=== PATIENT | male | born 1975 | race Caucasian/White ===

== ENCOUNTER 2018-05-23 12:19 | Emergency (ER) | payer MEDICAID, SELFPAY ==
[2018-05-23 12:31] VITALS: BP 134/97; PULSE 94; RESP 16; TEMP 36.9; O2SAT 97
--- NOTE | 2018-05-23 12:43 | W.ED.GENAD ---
Discharge Plan Disposition Patient Disposition: HOME Condition: Good Discharge Details Chief Complaint: Nk/Back Pain Clinical Impression: Lumbago with sciatica Primary Care Provider: Kya Mcrae ED Provider: Abraham Funk Home Meds and New Rx's Prescriptions: New prednisone 20 mg tablet 40 mg PO DAILY 5 Days Qty: 10 RF: 0 oxycodone-acetaminophen [Percocet] 5-325 mg tablet 1 tab PO Q6H PRN (Reason: severe breakthrough pain) Qty: 7 RF: 0 Discharge Instructions Instructions: Low Back Strain (ED) Additional Instructions: Continue ibuprofen as you have been. May apply ice and/or moist heat to area to increase relief of pain. Please follow-up with physical therapy. Take medications as prescribed. As we discussed the Percocet is used only for severe, breakthrough pain. Return if you develop increasing pain, weakness, numbness or any other acute concerns. Follow-up with regular doctor for recheck in 5-7 days time Stand Alone Forms: Physical Therapy Referral, Work Release Discharge Data Discharge Date/Time-TO BE ENTERED AT DEPARTURE: 05/23/18 13:36 Medical Decision Making 43-year-old male presents with exacerbation of chronic low back pain. Is currently only taking ibuprofen. He arrives with moderate to severe pain, pulse in the 90s, normal blood pressure. His exam reveals normal motor and sensory function of the lower extremity with normal reflexes and great toe proprioception. He has a history of lumbar fusion in the past and is referred for x-ray to rule out disruption of hardware or new acute bony finding. He is able to ambulate, he has no focal deficits. We will prescribe physical therapy, a burst dose of steroids, spell as I did consent the patient for the use of opiates for breakthrough pain. He is given a Rx for 7 pills of Percocet. Consistent with acute exacerbation of chronic back low back pain. Discussed the patient and his return precautions to the ER. I consented the patient for opiate use prior to discharge. HPI General Mode of arrival: ambulatory. Date/Time Provider Initiated Documentation: 05/23/18 12:21. Limitations to Documentation: no limitations. Information obtained by: patient. History of Present Illness 43 year old M presents to the emergency department with the chief complaint of Back pain, described as severe, Quality is described as aching, and is localized to the back. Patient reports radiation to back. Patient started experiencing this day(s) and it has been constant. Immobilization improves symptom(s), Movement worsens symptoms . HPI Narrative: Back pain: 43-year-old with history of chronic back pain presents the emergency room today complaining of day 3 of the gradual onset of constant low back pain that radiates to both legs. He has not had any numbness or tingling. No change to urination. He has had no change to his ability to walk. No focal motor weakness or foot drop. No trauma. Similar to previous exacerbations of back pain in the past Related Data Home Medications Medication Instructions Recorded Confirmed oxycodone-acetaminophen [Percocet] 1 tab PO Q6H PRN #7 tab 05/23/18 prednisone 40 mg PO DAILY 5 Days #10 tab 05/23/18 Previous Rx's Medication Instructions Recorded oxycodone-acetaminophen [Percocet] 1 tab PO Q6H PRN #7 tab 05/23/18 prednisone 40 mg PO DAILY 5 Days #10 tab 05/23/18 Allergies Allergy/AdvReac Type Severity Reaction Status Date / Time bupropion AdvReac Headache, Unverified 12/23/17 11:25 Night Sweats hydrocodone [From Vicodin] AdvReac Nausea Unverified 12/23/17 11:25 [email or web address] AdvReac Headache Unverified 12/23/17 11:25 General Stated Complaint: Nk/Back Pain JULIANA: 4 Review of Systems Review of Systems 6 systems reviewed and otherwise negative [facility] Social History Smoking/Tobacco Use Status: Current every day Surgical History Appendectomy (08/23/88) Cholecystectomy Spinal Fusion (12/21/06) Exam Narrative Exam Narrative: GEN: awake, alert, oriented 3. Pleasant, well groomed, interactive. HEAD: Normocephalic, atraumatic ENT: Mucous membranes moist, oropharynx unremarkable, External ear exam unremarkable EYES: PERRL, EOMI NECK: Full ROM, no PARVEZ, no menigismus BACK: Lumbar vertical surgical incision, well-healed. There is no significant midline tenderness there is bilateral paraspinous muscular tenderness to palpation CHEST/RESP: Nontender, clear to auscultation bilateral, no wheeze/rhonchi/rales CARDIOVASCULAR: RRR, no murmur, rub ramona. 2+ Rad pulse bilateral ABDOMEN: Soft, nontender, no mass. +Bowel sounds EXT: Full ROM, no edema, no rash. Sensation intact throughout including cell distribution. Motor is 5 out of 5. 2+ patella and ankle reflexes are symmetric bilaterally. Great toe proprioception intact Neuro: Grossly normal neurologic exam, conversant, interactive. Psych: Speech fluent, thoughts congruent, affect normal Course Vital Signs Temperature 36.9 C 05/23/18 12:31 Pulse 94 H 05/23/18 12:31 Respiratory Rate 16 05/23/18 12:31 Blood Pressure 134/97 H 05/23/18 12:31 Pulse Oximetry 97 05/23/18 12:31 Temperature 36.9 C 05/23/18 12:31 Temperature Source Temporal Artery Scan 05/23/18 12:31 Pulse 94 H 05/23/18 12:31 Respiratory Rate 16 05/23/18 12:31 Respiratory Effort 05/23/18 12:33 Blood Pressure 134/97 H 05/23/18 12:31 Pulse Oximetry 97 05/23/18 12:31 Oxygen Delivery Method Room Air 05/23/18 12:31 Oxygen Flow Rate 0 05/23/18 12:31 Pain Level 9 05/23/18 12:31
--- NOTE | 2018-05-23 12:46 | DI.RAD_ITS ---
SYMPTOMS/DIAGNOSIS: LOW BACK PAIN, DISTANT FUSION LUMBOSACRAL SPINE: Three views were obtained. There are Gardner rods in place from L4 to S1. There are degenerative changes seen throughout the lumbar spine. No acute fracture identified.
--- NOTE | 2018-05-23 12:46 | ED.GENADUL_ITS ---
Discharge Plan Disposition Patient Disposition: HOME Condition: Good Discharge Details Chief Complaint: Nk/Back Pain Clinical Impression: Lumbago with sciatica Primary Care Provider: Kya Mcrae ED Provider: Abraham Funk Home Meds and New Rx's Prescriptions: New prednisone 20 mg tablet 40 mg PO DAILY 5 Days Qty: 10 RF: 0 oxycodone-acetaminophen [Percocet] 5-325 mg tablet 1 tab PO Q6H PRN (Reason: severe breakthrough pain) Qty: 7 RF: 0 Discharge Instructions Instructions: Low Back Strain (ED) Additional Instructions: Continue ibuprofen as you have been. May apply ice and/or moist heat to area to increase relief of pain. Please follow-up with physical therapy. Take medications as prescribed. As we discussed the Percocet is used only for severe, breakthrough pain. Return if you develop increasing pain, weakness, numbness or any other acute concerns. Follow-up with regular doctor for recheck in 5-7 days time Stand Alone Forms: Physical Therapy Referral, Work Release Discharge Data Discharge Date/Time-TO BE ENTERED AT DEPARTURE: 05/23/18 13:36 Medical Decision Making 43-year-old male presents with exacerbation of chronic low back pain. Is currently only taking ibuprofen. He arrives with moderate to severe pain, pulse in the 90s, normal blood pressure. His exam reveals normal motor and sensory function of the lower extremity with normal reflexes and great toe proprioception. He has a history of lumbar fusion in the past and is referred for x-ray to rule out disruption of hardware or new acute bony finding. He is able to ambulate, he has no focal deficits. We will prescribe physical therapy, a burst dose of steroids, spell as I did consent the patient for the use of opiates for breakthrough pain. He is given a Rx for 7 pills of Percocet. Consistent with acute exacerbation of chronic back low back pain. Discussed the patient and his return precautions to the ER. I consented the patient for opiate use prior to discharge. HPI General Mode of arrival: ambulatory . Date/Time Provider Initiated Documentation: 05/23/18 12:21 . Limitations to Documentation: no limitations . Information obtained by: patient . History of Present Illness 43 year old M presents to the emergency department with the chief complaint of Back pain, described as severe, Quality is described as aching, and is localized to the back. Patient reports radiation to back. Patient started experiencing this day(s) and it has been constant. Immobilization improves symptom(s), Movement worsens symptoms . HPI Narrative: Back pain: 43-year-old with history of chronic back pain presents the emergency room today complaining of day 3 of the gradual onset of constant low back pain that radiates to both legs. He has not had any numbness or tingling. No change to urination. He has had no change to his ability to walk. No focal motor weakness or foot drop. No trauma. Similar to previous exacerbations of back pain in the past Related Data Home Medications Medication Instructions Recorded Confirmed oxycodone-acetaminophen [Percocet] 1 tab PO Q6H PRN #7 tab 05/23/18 prednisone 40 mg PO DAILY 5 Days #10 tab 05/23/18 Previous Rx's Medication Instructions Recorded oxycodone-acetaminophen [Percocet] 1 tab PO Q6H PRN #7 tab 05/23/18 prednisone 40 mg PO DAILY 5 Days #10 tab 05/23/18 Allergies Allergy/AdvReac Type Severity Reaction Status Date / Time bupropion AdvReac Headache, Unverified 12/23/17 11:25 Night Sweats hydrocodone [From Vicodin] AdvReac Nausea Unverified 12/23/17 11:25 [email or web address] AdvReac Headache Unverified 12/23/17 11:25 General Stated Complaint: Nk/Back Pain JULIANA: 4 Review of Systems Review of Systems 6 systems reviewed and otherwise negative [facility] Social History Smoking/Tobacco Use Status: Current every day Surgical History Appendectomy (08/23/88) Cholecystectomy Spinal Fusion (12/21/06) Exam Narrative Exam Narrative: GEN: awake, alert, oriented 3. Pleasant, well groomed, interactive. HEAD: Normocephalic, atraumatic ENT: Mucous membranes moist, oropharynx unremarkable, External ear exam unremarkable EYES: PERRL, EOMI NECK: Full ROM, no PARVEZ, no menigismus BACK: Lumbar vertical surgical incision, well-healed. There is no significant midline tenderness there is bilateral paraspinous muscular tenderness to palpation CHEST/RESP: Nontender, clear to auscultation bilateral, no wheeze/rhonchi/rales CARDIOVASCULAR: RRR, no murmur, rub ramona. 2+ Rad pulse bilateral ABDOMEN: Soft, nontender, no mass. +Bowel sounds EXT: Full ROM, no edema, no rash. Sensation intact throughout including cell distribution. Motor is 5 out of 5. 2+ patella and ankle reflexes are symmetric bilaterally. Great toe proprioception intact Neuro: Grossly normal neurologic exam, conversant, interactive. Psych: Speech fluent, thoughts congruent, affect normal Course Vital Signs Temperature 36.9 C 05/23/18 12:31 Pulse 94 H 05/23/18 12:31 Respiratory Rate 16 05/23/18 12:31 Blood Pressure 134/97 H 05/23/18 12:31 Pulse Oximetry 97 05/23/18 12:31 Temperature 36.9 C 05/23/18 12:31 Temperature Source Temporal Artery Scan 05/23/18 12:31 Pulse 94 H 05/23/18 12:31 Respiratory Rate 16 05/23/18 12:31 Respiratory Effort 05/23/18 12:33 Blood Pressure 134/97 H 05/23/18 12:31 Pulse Oximetry 97 05/23/18 12:31 Oxygen Delivery Method Room Air 05/23/18 12:31 Oxygen Flow Rate 0 05/23/18 12:31 Pain Level 9 05/23/18 12:31
[2018-05-23] MEDS: Ketorolac 60 MG/2 ML VIAL IM (12:48)
== END 2018-05-23 13:36 | disposition home or self-care (01) ==
PROVIDERS: Emergency Provider Emergency Medicine; PCP Nurse Practitioner
DX: M54.41 Lumbago with sciatica, right side (principal); M54.42 Lumbago with sciatica, left side; G89.29 Other chronic pain
CPT/HCPCS: 96372; 99284; 72100; J1885

== ENCOUNTER 2018-06-21 19:40 | Emergency (ER) | payer MEDICAID, SELFPAY ==
[2018-06-21 19:43] VITALS: BP 150/105; PULSE 99; RESP 20; TEMP 36.7; O2SAT 99
--- NOTE | 2018-06-21 20:48 | W.ED.GENAD ---
Discharge Plan Disposition Patient Disposition: HOME Discharge Details Chief Complaint: Nk/Back Pain Clinical Impression: Back pain Primary Care Provider: Eligio Bennett ED Provider: Farrukh Gould Home Meds and New Rx's Prescriptions: Continue trazodone 100 mg tablet 100 mg PO HS Qty: 60 RF: 1 meloxicam 15 mg tablet 15 mg PO DAILY Qty: 30 RF: 1 baclofen 20 mg tablet 20 mg PO QID PRN (Reason: back pain) Qty: 120 RF: 1 Discharge Instructions Instructions: Back Pain (ED) Additional Instructions: PLease have MRI as scheduled tomorrow. Please take your medication as prescribed. Be sure to discuss dosing of mobic in combination with ibuprofen with your primary doctor. Both of these medications are NSAIDs and not typically prescribed together. Please contact your primary care physician to arrange follow-up. Please follow-up with spinal specialist at [facility]. Return to the ER for any worsening or new concerning symptoms. Referrals: Eligio Bennett DO [Primary Care Provider] - Medical Decision Making 43-year-old male with history of spinal fusion presents with exacerbation of chronic low back pain. Patient is having some paresthesias posterior lateral buttocks. Neurologically intact on exam. Able to ambulate with no focal deficits. Patient is currently on Mobic but also taking ibuprofen. I advised him to stop combining these medications and advised him to discuss with his primary care physician. He did not have any NSAID since this morning. I will give him a dose of Toradol IM now as he notes that this has helped him in the past with exacerbations. Patient has MRI scheduled for tomorrow morning. I encouraged him to keep this appointment. He is also scheduled to follow-up with spinal specialist at [facility]. I encouraged him to keep this appointment as well. HPI General Mode of arrival: ambulatory. Date/Time Provider Initiated Documentation: 06/21/18 19:46. Limitations to Documentation: no limitations. Information obtained by: patient. HPI Narrative: 43-year-old male with chronic back pain, status post spinal fusion, here with exacerbation of his low back pain. Pain is currently moderate to severe and worse with certain positions including prolonged supine position. Pain localized to low thoracic/upper lumbar bialteral paraspinal. Patient notes he last took Tylenol at 2 PM and ibuprofen at 8 AM. He also took Mobic this morning as prescribed. He has associated tingling in his lateral buttocks. No associated bowel or bladder dysfunction. No fever. Related Data Home Medications Medication Instructions Recorded Confirmed baclofen 20 mg tablet 20 mg PO QID PRN #120 tab 06/15/18 06/21/18 meloxicam 15 mg tablet 15 mg PO DAILY #30 tab 06/15/18 06/21/18 trazodone 100 mg tablet 100 mg PO HS #60 tab 06/15/18 06/15/18 Previous Rx's Medication Instructions Recorded baclofen 20 mg tablet 20 mg PO QID PRN #120 tab 06/15/18 meloxicam 15 mg tablet 15 mg PO DAILY #30 tab 06/15/18 trazodone 100 mg tablet 100 mg PO HS #60 tab 06/15/18 Allergies Allergy/AdvReac Type Severity Reaction Status Date / Time bupropion AdvReac Headache, Verified 06/21/18 19:47 Night Sweats hydrocodone [From Vicodin] AdvReac Nausea Verified 06/21/18 19:47 [email or web address] AdvReac Headache Verified 06/21/18 19:47 General Stated Complaint: Nk/Back Pain JULIANA: 4 Review of Systems Review of Systems All systems reviewed & are unremarkable except as noted in HPI and below PFSH Social History household members: spouse and children housing: house lives independently: Yes number of children: 3 number of grandchildren: 1 current occupational status: unemployed Smoking/Tobacco Use Status: Current every day Surgical History Appendectomy (08/23/88) Cholecystectomy Spinal Fusion (12/21/06) Exam Const General: cooperative and no acute distress [facility] Head: normocephalic and atraumatic Mouth: moist mucous membranes Eyes Conjunctivae: normal conjunctivae Sclera: normal sclerae EOM: EOM intact bilaterally Neck Neck: trachea midline and supple Resp Auscultation: clear to auscultation bilaterally, no rales, no rhonchi and no wheezes Cardio Jugular venous pressure: no JVD Rate: regular rate and not tachycardic Rhythm: regular rhythm GI Palpation: soft, not firm, no guarding, no masses, not rigid and nontender Back/Spine/Pelvis Back: No erythema Thoracic/Lumbar Spine: paraspinal tenderness (bilateral upper lumbar) Skin General skin exam: no rashes or lesions noted Neuro General: alert, awake, oriented x3 and tone normal Gait: normal gait Motor: strength 5/5 throughout (bilateral LEs) Sensory Exam: no sensory deficits noted (no saddle anesth) Extrem General: no edema Psych Appearance: grossly normal Mental Status: mental status grossly normal Speech and Movement: speech and movement normal Course Vital Signs Temperature 36.7 C 06/21/18 19:43 Pulse 99 H 06/21/18 19:43 Respiratory Rate 20 06/21/18 19:43 Blood Pressure 150/105 H 06/21/18 19:43 Pulse Oximetry 99 06/21/18 19:43 Temperature 36.7 C 06/21/18 19:43 Temperature Source Temporal Artery Scan 06/21/18 19:43 Pulse 99 H 06/21/18 19:43 Respiratory Rate 20 06/21/18 19:43 Respiratory Effort Non-Labored 06/21/18 19:43 Blood Pressure 150/105 H 06/21/18 19:43 Pulse Oximetry 99 06/21/18 19:43 Pain Level 10 06/21/18 19:47
[2018-06-21] MEDS: Acetaminophen 325 MG TAB 650 MG PO (20:55)
[2018-06-21] MEDS: Ketorolac 60 MG/2 ML VIAL IM (20:55)
--- NOTE | 2018-06-21 20:59 | ED.GENADUL_ITS ---
Discharge Plan Disposition Patient Disposition: HOME Discharge Details Chief Complaint: Nk/Back Pain Clinical Impression: Back pain Primary Care Provider: Eligio Bennett ED Provider: Farrukh Gould Home Meds and New Rx's Prescriptions: Continue trazodone 100 mg tablet 100 mg PO HS Qty: 60 RF: 1 meloxicam 15 mg tablet 15 mg PO DAILY Qty: 30 RF: 1 baclofen 20 mg tablet 20 mg PO QID PRN (Reason: back pain) Qty: 120 RF: 1 Discharge Instructions Instructions: Back Pain (ED) Additional Instructions: PLease have MRI as scheduled tomorrow. Please take your medication as prescribed. Be sure to discuss dosing of mobic in combination with ibuprofen with your primary doctor. Both of these medications are NSAIDs and not typically prescribed together. Please contact your primary care physician to arrange follow-up. Please follow- up with spinal specialist at [facility]. Return to the ER for any worsening or new concerning symptoms. Referrals: Eligio Bennett DO [Primary Care Provider] - Medical Decision Making 43-year-old male with history of spinal fusion presents with exacerbation of chronic low back pain. Patient is having some paresthesias posterior lateral buttocks. Neurologically intact on exam. Able to ambulate with no focal deficits. Patient is currently on Mobic but also taking ibuprofen. I advised him to stop combining these medications and advised him to discuss with his primary care physician. He did not have any NSAID since this morning. I will give him a dose of Toradol IM now as he notes that this has helped him in the past with exacerbations. Patient has MRI scheduled for tomorrow morning. I encouraged him to keep this appointment. He is also scheduled to follow-up with spinal specialist at [facility]. I encouraged him to keep this appointment as well. HPI General Mode of arrival: ambulatory . Date/Time Provider Initiated Documentation: 06/21/18 19:46 . Limitations to Documentation: no limitations . Information obtained by: patient . HPI Narrative: 43-year-old male with chronic back pain, status post spinal fusion, here with exacerbation of his low back pain. Pain is currently moderate to severe and worse with certain positions including prolonged supine position. Pain localized to low thoracic/upper lumbar bialteral paraspinal. Patient notes he last took Tylenol at 2 PM and ibuprofen at 8 AM. He also took Mobic this morning as prescribed. He has associated tingling in his lateral buttocks. No associated bowel or bladder dysfunction. No fever. Related Data Home Medications Medication Instructions Recorded Confirmed baclofen 20 mg tablet 20 mg PO QID PRN #120 tab 06/15/18 06/21/18 meloxicam 15 mg tablet 15 mg PO DAILY #30 tab 06/15/18 06/21/18 trazodone 100 mg tablet 100 mg PO HS #60 tab 06/15/18 06/15/18 Previous Rx's Medication Instructions Recorded baclofen 20 mg tablet 20 mg PO QID PRN #120 tab 06/15/18 meloxicam 15 mg tablet 15 mg PO DAILY #30 tab 06/15/18 trazodone 100 mg tablet 100 mg PO HS #60 tab 06/15/18 Allergies Allergy/AdvReac Type Severity Reaction Status Date / Time bupropion AdvReac Headache, Verified 06/21/18 19:47 Night Sweats hydrocodone [From Vicodin] AdvReac Nausea Verified 06/21/18 19:47 [email or web address] AdvReac Headache Verified 06/21/18 19:47 General Stated Complaint: Nk/Back Pain JULIANA: 4 Review of Systems Review of Systems All systems reviewed & are unremarkable except as noted in HPI and below PFSH Social History household members: spouse and children housing: house lives independently: Yes number of children: 3 number of grandchildren: 1 current occupational status: unemployed Smoking/Tobacco Use Status: Current every day Surgical History Appendectomy (08/23/88) Cholecystectomy Spinal Fusion (12/21/06) Exam Const General: cooperative and no acute distress [facility] Head: normocephalic and atraumatic Mouth: moist mucous membranes Eyes Conjunctivae: normal conjunctivae Sclera: normal sclerae EOM: EOM intact bilaterally Neck Neck: trachea midline and supple Resp Auscultation: clear to auscultation bilaterally, no rales, no rhonchi and no wheezes Cardio Jugular venous pressure: no JVD Rate: regular rate and not tachycardic Rhythm: regular rhythm GI Palpation: soft, not firm, no guarding, no masses, not rigid and nontender Back/Spine/Pelvis Back: No erythema Thoracic/Lumbar Spine: paraspinal tenderness (bilateral upper lumbar) Skin General skin exam: no rashes or lesions noted Neuro General: alert, awake, oriented x3 and tone normal Gait: normal gait Motor: strength 5/5 throughout (bilateral LEs) Sensory Exam: no sensory deficits noted (no saddle anesth) Extrem General: no edema Psych Appearance: grossly normal Mental Status: mental status grossly normal Speech and Movement: speech and movement normal Course Vital Signs Temperature 36.7 C 06/21/18 19:43 Pulse 99 H 06/21/18 19:43 Respiratory Rate 20 06/21/18 19:43 Blood Pressure 150/105 H 06/21/18 19:43 Pulse Oximetry 99 06/21/18 19:43 Temperature 36.7 C 06/21/18 19:43 Temperature Source Temporal Artery Scan 06/21/18 19:43 Pulse 99 H 06/21/18 19:43 Respiratory Rate 20 06/21/18 19:43 Respiratory Effort Non-Labored 06/21/18 19:43 Blood Pressure 150/105 H 06/21/18 19:43 Pulse Oximetry 99 06/21/18 19:43 Pain Level 10 06/21/18 19:47
== END 2018-06-21 21:00 | disposition home or self-care (01) ==
PROVIDERS: Emergency Provider Student in an Organized Health Care Education/Training Program; PCP Family Medicine
DX: M54.5 Low back pain (principal)
CPT/HCPCS: 96372; 99284; J1885

== ENCOUNTER 2018-06-22 01:31 | Outpatient (CLI) | payer MEDICAID, SELFPAY ==
[2018-06-22] MEDS: Gadoterate meglumine 20 ML VIAL IVP (10:47)
--- NOTE | 2018-06-22 10:55 | DI.MRI_ITS ---
SYMPTOM/DIAGNOSIS: PAIN LE AND NUMBNESS, FAILED BACK SURGICAL SYNDROME, M96.1, M54.5 LUMBOSACRAL SPINE MRI: Sagittal T 1 and T 2 and T 1 trim sagittal and sagittal fat sat pre and post and axial T 1 pre and post and axial T 1 and axial T 2 and sagittal T 1 fat sat post and axial T 1 fat sat post pulse sequences were performed. The patient is status post L 4-[address] There are moderate degenerative endplate changes at L 2-3 there there is diminished signal and a narrow disc consistent with desiccation. The bony signal is otherwise unremarkable. At L 1-2, there is no evidence of a disc protrusion. There are mild facet joint degenerative changes and no evidence of spinal stenosis. At L 2-3, disc osteophyte prominence is demonstrated. There is no evidence of a disc protrusion. There are moderately severe facet joint degenerative changes and there is mild central canal narrowing. There is no evidence of significant spinal stenosis. At L 3-4, there is severe facet joint DJD. No evidence of a disc herniation and mild bilateral foraminal stenosis. At L 4-5, note is made of pedicle screws and rods in place. There is very mild disc osteophyte prominence however severe facet joint DJD is evident. There is an apparent right sided disc herniation at L 4-5 with compression of the dural sac and nerve root and exiting right L 5 nerve. Severe facet joint degenerative changes are identified. At L 5-S1, note is made of post surgical changes with greg and pedicle screws in place. There is no evidence of a disc herniation at this level. No intrinsic abnormality involving the lower dorsal cord, conus or filum terminale is seen. SUMMARY: Findings consistent with degenerative disc disease and post surgical changes. There may be a small right side dL 4-5 disc protrusion. There is evidence of degenerative disc disease and DJD throughout the lumbar spine with multi level spinal stenosis. Please see the above discussion.
== END 2018-06-22 01:51 ==
PROVIDERS: PCP Family Medicine; Visit Provider Nurse Practitioner
DX: M96.1 Postlaminectomy syndrome, not elsewhere classified (principal); M54.5 Low back pain; M51.17 Intervertebral disc disorders with radiculopathy, lumbosacral region
CPT/HCPCS: 72158

== ENCOUNTER 2019-08-17 07:03 | Emergency (ER) | payer MEDICAID, SELFPAY ==
[2019-08-17 07:06] VITALS: BP 113/88; PULSE 88; RESP 16; TEMP 36.6; O2SAT 98
--- NOTE | 2019-08-17 07:10 | W.ED.GENAD ---
Discharge Plan Disposition Patient Disposition: HOME Condition: Good Discharge Details Chief Complaint: Orthopedic Clinical Impression: Injury of left wrist Primary Care Provider: Kya Mcrae ED Provider: Fili Zhou Home Meds and New Rx's Prescriptions: No Action No Known Home Meds RF: 0 Discharge Instructions Additional Instructions: Ice on and off for the next few days. Ibuprofen every 6-8 hours for pain. Wear splint for the next week or so for comfort. Follow-up with primary care for reevaluation if not significantly better in 1 to 2 weeks. Return to ED for increased pain, swelling, numbness, weakness to the hand. Stand Alone Forms: Work Release Referrals: Kya Mcrae, AEROTRIANGULATION SPECIALIST [Primary Care Provider] - Medical Decision Making Patient with isolated wrist injury status post fall. Ibuprofen ordered and patient sent x-ray. Per my review his x-ray shows no acute changes. He appears to have previous injury to this wrist but compared to prior films there is no significant change and no acute fracture. Will wait for preliminary radiology read. Patient will be placed in a splint for comfort. Ice and ibuprofen for the next few days. Follow-up with primary care in 1 to 2 weeks for recheck. Return to ED for increasing pain, swelling, numbness, weakness. HPI General Mode of arrival: ambulatory. Date/Time Provider Initiated Documentation: 08/17/19 07:06. Limitations to Documentation: no limitations. Information obtained by: patient. HPI Narrative: Patient presents to ED with complaint of left wrist pain. He had a slip and fall outside. Because most of the fall with his left arm. He is left-hand dominant. He has pain in the left wrist mostly ulnar aspect. He has no numbness or weakness of the hand. Denies any other injury. Did not strike his head. Ambulatory here for evaluation of the wrist pain. Related Data Home Medications Medication Instructions Recorded Confirmed Unknown [No Known Home Meds] 08/17/19 08/17/19 Allergies Allergy/AdvReac Type Severity Reaction Status Date / Time bupropion AdvReac Headache, Verified 08/17/19 07:09 Night Sweats hydrocodone [From Vicodin] AdvReac Nausea Verified 08/17/19 07:09 [email or web address] AdvReac Headache Verified 08/17/19 07:09 General Stated Complaint: Orthopedic JULIANA: 4 Review of Systems Constitutional Constitutional: Denies weakness Musculoskeletal Musculoskeletal: Reports arthralgias, Reports limited range of motion, Denies numbness and Denies tingling Integumentary/Breasts Skin/Breast: Denies wounds Neurologic Neurologic: Denies numbness, Denies tingling, Denies paresthesias and Denies weakness [facility] Surgical History Appendectomy (08/23/88) Cholecystectomy Spinal Fusion (12/21/06) twice; most recent posterior fusion L4-S1 Social History Smoking/Tobacco Use Status: Current every day Alcohol Intake: never Drug use: Never Substance use type: does not use Household members: spouse and children Housing: house Number of Children: 3 number of grandchildren: 1 What type of physical activity do you participate in: none Do you feel safe at home: Yes Do you feel safe in your relationship?: Yes Exam Narrative Exam Narrative: Vitals: Afebrile with normal vital signs and room air pulse oximetry. Const: WDWN male in NAD. HEENT: NC/AT. Normal facial exam. Eyes: Normal conjunctiva and sclera. Neck: Supple. Trachea midline. No c-spine tenderness. Lungs: Normal respiratory effort. Lungs are clear. Cor: RRR without murmur/gallop. Good radial pulses. Neuro: A+O x 3. Normal speech, gait, mentation. No focal motor or sensory deficit. Ext: Tenderness lateral aspect of the wrist and distal ulna. Slight swelling. Normal strength and sensation distally in the hand. Normal radial pulse and cap refill. No tenderness elsewhere of the left upper extremity. Skin: Warm and dry without wounds. Course Vital Signs Vital signs: Vital Signs Temperature 97.9 F 08/17/19 07:06 Pulse 88 08/17/19 07:06 Respiratory Rate 16 08/17/19 07:06 Blood Pressure 113/88 08/17/19 07:06 Pulse Oximetry 98 08/17/19 07:06 Temperature 97.9 F 08/17/19 07:06 Temperature Source Temporal Artery Scan 08/17/19 07:06 Pulse 88 08/17/19 07:06 Respiratory Rate 16 08/17/19 07:06 Respiratory Effort Non-Labored 08/17/19 07:06 Blood Pressure 113/88 08/17/19 07:06 Blood Pressure Position Sitting 08/17/19 07:06 Pulse Oximetry 98 08/17/19 07:06 Oxygen Delivery Method Room Air 08/17/19 07:06 Oxygen Flow Rate 0 08/17/19 07:06 Pain Level 8 08/17/19 07:06
--- NOTE | 2019-08-17 07:16 | DI.RAD_ITS ---
EXAM: XR WRIST LT COMPLETE INDICATION: trauma/fall. COMPARISON: LEFT FOREARM from 07/19/2016 LEFT WRIST COMPLETE from 08/18/2017 TECHNIQUE: 2D digital imaging was performed. FINDINGS: No acute fracture or dislocation is identified. There is again seen a deformity of the base of the 3 rd metacarpal. There is an old well corticated osseous density at the tip of the ulnar styloid proce ss. This is unchanged. Soft tissues are unremarkable. IMPRESSION: No acute abnormality.
[2019-08-17] MEDS: Ibuprofen 600 MG TAB PO (07:27)
--- NOTE | 2019-08-17 07:53 | DI.VRAD_ITS ---
PROCEDURE INFORMATION: Exam: XR Left Wrist Exam date and time: 08/17/2019 7:19 AM Age: 44 years old Clinical indication: Other: Trauma/fall; Additional info: Trauma/fall landed on lt wrist pain on ulna side . TECHNIQUE: Imaging protocol: XR Left wrist. Views: 3 or more views. COMPARISON: CR LEFT WRIST COMPLETE 08/18/2017 4:31 PM FINDINGS: Bones/joints: No acute bone injury or malalignment. Well-corticated 5 mm ossific density again demonstrated adjacent to the ulnar styloid. Mild degenerative change. Soft tissues: No radiopaque foreign body. IMPRESSION: No acute bone injury or malalignment. Dictated and Authenticated by: Chad William MD. Ordering:JOSIE Penn MD
== END 2019-08-17 07:57 | disposition home or self-care (01) ==
PROVIDERS: Emergency Provider Emergency Medicine; PCP Nurse Practitioner
DX: S69.82XA Other specified injuries of left wrist, hand and finger(s), initial encounter (principal); W00.0XXA Fall on same level due to ice and snow, initial encounter
CPT/HCPCS: 29125; 99283; 73110; L3908

== ENCOUNTER 2019-08-19 17:11 | Emergency (ER) | payer MEDICAID, SELFPAY ==
[2019-08-19 17:17] VITALS: BP 125/76; PULSE 98; RESP 16; TEMP 36.7; O2SAT 99
--- NOTE | 2019-08-20 22:52 | ED.GENADUL_ITS ---
Discharge Plan Disposition Patient Disposition: HOME Condition: Good Discharge Details Chief Complaint: Orthopedic Clinical Impression: Medication care plan discussed with patient Primary Care Provider: Kya Mcrae ED Provider: Corie Perkins Home Meds and New Rx's Prescriptions: No Action naproxen sodium 500 mg tablet, ER multiphase 24 hr 500 mg PO DAILY Qty: 14 RF: 1 omeprazole 40 mg capsule,delayed release(DR/EC) 40 mg PO DAILY Qty: 14 RF: 1 Discharge Instructions Additional Instructions: Use ibuprofen 600 mg every 8 hours with food in your stomach first as discussed. Use Zantac [id number]. Follow-up with physical therapy and your primary care doctor as discussed. Return for any worsening or concerns sooner if needed Discharge Data Discharge Date/Time-TO BE ENTERED AT DEPARTURE: 08/19/19 17:56 Medical Decision Making After discussion with the patient he is returning to the emergency room for advice regarding his medications previously prescribed. Patient prescribed Naprosyn as well as omeprazole. Pharmacy these medications will cost him approximately $400 given his insurance. I recommended that the patient use [id number] Motrin which he Tyler has at home in addition to Zantac which she can purchase at the pharmacy. Patient is very agreeable to this plan of care. Again patient has no new medical concerns or complaints he was just seeking advice regarding his prescriptions. Please see previous providers HPI and physical exam regarding the details of his left wrist pain. HPI General Date/Time Provider Initiated Documentation: 08/19/19 17:37 . HPI Narrative: This patient was seen in the emergency room earlier today for complaints of wrist pain. Patient reports he has no new medical concerns however he was prescribed Naprosyn and omeprazole which the pharmacy reports will be approximately $400. Patient unwilling to fill those medications and is seeking advice, they advised him to return to the emergency room. Patient again has no new medical concerns or complaints and is very aware of how to appropriately manage his rest complaints as previously directed by the previous provider. Related Data Home Medications Medication Instructions Recorded Confirmed naproxen sodium 500 mg 500 mg PO DAILY #14 tab 08/18/19 08/19/19 tablet,extended release 24 hr mphase omeprazole 40 mg capsule,delayed 40 mg PO DAILY #14 cap 08/18/19 08/19/19 release Previous Rx's Medication Instructions Recorded naproxen sodium 500 mg 500 mg PO DAILY #14 tab 08/18/19 tablet,extended release 24 hr mphase omeprazole 40 mg capsule,delayed 40 mg PO DAILY #14 cap 08/18/19 release Allergies Allergy/AdvReac Type Severity Reaction Status Date / Time bupropion AdvReac Headache, Verified 08/19/19 17:23 Night Sweats hydrocodone [From Vicodin] AdvReac Nausea Verified 08/19/19 17:23 [email or web address] AdvReac Headache Verified 08/19/19 17:23 General Stated Complaint: Orthopedic JULIANA: 4 Review of Systems All systems reviewed & are unremarkable except as noted in HPI and below PFSH Social History Smoking/Tobacco Use Status: Current every day Alcohol Intake: never Drug use: Never Substance use type: does not use Household members: spouse and children Housing: house Number of Children: 3 number of grandchildren: 1 What is your relationship status?: Panel score (0-1 are the most socially isolated patients): 1 What type of physical activity do you participate in: none Do you feel safe at home: Yes Do you feel safe in your relationship?: Yes Exam Narrative Exam Narrative: CONST: Healthy appearing patient, in no acute distress. Well hydrated. Alert and alert. MUSCULOSKELETAL: Normal Gait. Left wrist pain with palpation. Distal neurovascularly intact SKIN: Normal. Dry. No rashes. NEURO: Alert and awake. Speech clear. PSYCH: Normal affect. Cooperative. Course Vital Signs Vital signs: Vital Signs Temperature 36.7 C 08/19/19 17:17 Pulse 98 H 08/19/19 17:17 Respiratory Rate 16 08/19/19 17:17 Blood Pressure 125/76 08/19/19 17:17 Pulse Oximetry 99 08/19/19 17:17 Temperature 36.7 C 08/19/19 17:17 Temperature Source Temporal Artery Scan 08/19/19 17:17 Pulse 98 H 08/19/19 17:17 Respiratory Rate 16 08/19/19 17:17 Respiratory Effort Non-Labored 08/19/19 17:22 Blood Pressure 125/76 08/19/19 17:17 Blood Pressure Position Sitting 08/19/19 17:17 Pulse Oximetry 99 08/19/19 17:17 Oxygen Delivery Method Room Air 08/19/19 17:17 Oxygen Flow Rate 0 08/19/19 17:17 Pain Level 8 08/19/19 17:54
== END 2019-08-19 17:56 | disposition home or self-care (01) ==
PROVIDERS: Emergency Provider Physician Assistant; PCP Nurse Practitioner
DX: M25.532 Pain in left wrist (principal); Z71.89 Other specified counseling
CPT/HCPCS: 99282

== ENCOUNTER 2019-11-01 13:43 | Emergency (ER) | payer MEDICAID, SELFPAY ==
[2019-11-01 13:48] VITALS: BP 124/89; PULSE 105; RESP 18; TEMP 37; O2SAT 96
--- NOTE | 2019-11-01 14:04 | ED.GENADUL_ITS ---
Discharge Plan Disposition Patient Disposition: HOME Condition: Improving Discharge Details Chief Complaint: Cellulitis Clinical Impression: Prepatellar bursitis of left knee Primary Care Provider: Kya Mcrae ED Provider: Abraham Funk Home Meds and New Rx's Prescriptions: Continued naproxen sodium 500 mg tablet, ER multiphase 24 hr 500 mg PO DAILY Qty: 14 RF: 1 omeprazole 40 mg capsule,delayed release(DR/EC) 40 mg PO DAILY Qty: 14 RF: 1 Discharge Instructions Instructions: Knee Bursitis (ED) Additional Instructions: Compression, ice to reduce pain and swelling. Remove Johnathan bandage at nighttime. Take prednisone as prescribed. Return if develop a fever, spreading erythema, or any other acute concerns. Medical Decision Making 44-year-old healthy male states that he developed left prepatellar pain and swelling after kneeling for hours to repair his car. He has not had a fever and no significant overlying erythema. Evaluation of the joint is unremarkable. This does appear to be limited to the prepatellar space. Consistent with prepatellar bursitis. Discussed with patient consideration of needle aspiration/drainage which she declines. Do not feel that there is evidence of significant cellulitis. I will treat him with a course of steroids and Johnathan bandage for compression. Discussed with him anticipated course of resolution. HPI General Mode of arrival: ambulatory . Date/Time Provider Initiated Documentation: 11/01/19 13:54 . Limitations to Documentation: no limitations . Information obtained by: patient . History of Present Illness 44 year old M presents to the emergency department with the chief complaint of Left knee swelling anteriorly, described as moderate, Quality is described as dull, and is localized to the left and lower extremity. Patient reports no radiation. Patient started experiencing this day(s) and it has been constant. No relieving factors improve symptom(s), No exacerbating factors reported . Patient notes denies fever/chills. Patient did receive the following treatments prior to arrival, none Related Data Home Medications Medication Instructions Recorded Confirmed naproxen sodium 500 mg 500 mg PO DAILY #14 tab 08/18/19 11/01/19 tablet,extended release 24 hr mphase omeprazole 40 mg capsule,delayed 40 mg PO DAILY #14 cap 08/18/19 11/01/19 release Previous Rx's Medication Instructions Recorded naproxen sodium 500 mg 500 mg PO DAILY #14 tab 08/18/19 tablet,extended release 24 hr mphase omeprazole 40 mg capsule,delayed 40 mg PO DAILY #14 cap 08/18/19 release Allergies Allergy/AdvReac Type Severity Reaction Status Date / Time bupropion AdvReac Headache, Verified 11/01/19 13:54 Night Sweats hydrocodone [From Vicodin] AdvReac Nausea Verified 11/01/19 13:54 [email or web address] AdvReac Headache Verified 11/01/19 13:54 General Stated Complaint: Cellulitis JULIANA: 3 Review of Systems Narrative: No fever, no joint pain, able to ambulate. Began after kneeling for hours. [facility] Social History Smoking/Tobacco Use Status: Current every day Alcohol Intake: never Drug use: Never Substance use type: does not use Household members: spouse and children Housing: house Number of Children: 3 number of grandchildren: 1 What is your relationship status?: Panel score (0-1 are the most socially isolated patients): 1 What type of physical activity do you participate in: none Do you feel safe at home: Yes Do you feel safe in your relationship?: Yes Exam Narrative Exam Narrative: GEN: awake, alert, oriented 3. Pleasant, well groomed, interactive. HEAD: Normocephalic, atraumatic ENT: Mucous membranes moist, oropharynx unremarkable, External ear exam unremarkable EXT: Full ROM, no pain with movement of the knees. There is no laxity of the left knee joint. Motor is 5 out of 5 in the bilateral lower extremity. Left inferior prepatellar area with swelling and tenderness to palpation, no significant overlying erythema or warmth. Neuro: Grossly normal neurologic exam, conversant, interactive. Psych: Speech fluent, thoughts congruent, affect normal Course Vital Signs Vital signs: Vital Signs Temperature 37 C 11/01/19 13:48 Pulse 105 H 11/01/19 13:48 Respiratory Rate 18 11/01/19 13:48 Blood Pressure 124/89 11/01/19 13:48 Pulse Oximetry 96 11/01/19 13:48 Temperature 37 C 11/01/19 13:48 Temperature Source Skin 11/01/19 13:48 Pulse 105 H 11/01/19 13:48 Respiratory Rate 18 11/01/19 13:48 Respiratory Effort 11/01/19 13:54 Blood Pressure 124/89 11/01/19 13:48 Blood Pressure Position Sitting 11/01/19 13:48 Pulse Oximetry 96 11/01/19 13:48 Oxygen Delivery Method Room Air 11/01/19 13:48 Oxygen Flow Rate 0 11/01/19 13:48 Pain Level 10 11/01/19 13:48 Comment 11/01/19 13:48
== END 2019-11-01 14:45 | disposition home or self-care (01) ==
PROVIDERS: Emergency Provider Emergency Medicine; PCP Nurse Practitioner
DX: M70.42 Prepatellar bursitis, left knee (principal); X50.1XXA Overexertion from prolonged static or awkward postures, initial encounter
CPT/HCPCS: 99283

== ENCOUNTER 2022-02-25 15:07 | Emergency (ER) | payer MEDICAID, SELFPAY ==
[2022-02-25 15:27] VITALS: BP 121/78; PULSE 89; RESP 17; TEMP 36.8; O2SAT 99
--- NOTE | 2022-02-25 16:00 | DI.RAD_ITS ---
Exam(s) XR KNEE LT 3V AP,LAT,HANSEL EXAM: XR KNEE LT 3V AP,LAT,HANSEL CLINICAL HISTORY: pain for 2 weeks. TECHNIQUE: 2D digital imaging was performed. COMPARISON: CR LEFT KNEE 3 VIEW COMPLETE from 06/10/2013 FINDINGS: 3 views No evidence of fracture nor prominent joint effusion. No degenerative changes. No osseous lesions. IMPRESSION: No significant findings. DATA REPOSITORY: RADIATION DOSE DELIVERED:
--- NOTE | 2022-02-25 16:14 | W.ED.GENAD ---
Discharge Plan Disposition Patient Disposition: HOME Condition: Stable Discharge Details Chief Complaint: Orthopedic Clinical Impression: Left knee sprain Primary Care Provider: Kya Mcrae ED Provider: Pérez Fam Home Meds and New Rx's Prescriptions: No Action No Known Home Meds Discharge Instructions Instructions: Knee Sprain (ED) Additional Instructions: If pain continues in a week follow up with your primary care provider If you have severe worsening pain, feel more ill, or have fevers return to the emergency department Medical Decision Making 47 yo male comes in with 2 weeks of left knee pain. He states it started 2 weeks ago after he was helping push a car and twisted the knee. Denies any falls or trauma. HAs had pain with walking since so came here for an evaluation. Denies fevers, chills or pain elsewhere. He has no significant swelling or redness of the knee. He has tenderness to both the medial and lateral knee joint lines. He has no warmth of the knee. He can fully extend and flex the knee, normal distal sensation, normal pulses and no calf tenderness. Suspect knee sprain vs strain less likely meniscus vs ligamentous injury. Fracture unlikely but will obtain xray to evaluate for this. No findings on exam to suggest septic joint. xray negative on my read, discussed with pt and will provide knee brace. Advised to f/u with pcp in a week if pain continues and possible ortho referral at that time. Return precautions given Differential Diagnosis Differential Diagnosis: strain, meniscus injury, ligamentous injury Imaging Data Radiologic Study: Attestation: I personally reviewed and interpreted this imaging study as follows: Imaging: X-Ray My impression: no acute findings HPI General Mode of arrival: ambulatory. Date/Time Provider Initiated Documentation: 02/25/22 15:34. Limitations to Documentation: no limitations. Information obtained by: patient. History of Present Illness 47 year old M presents to the emergency department with the chief complaint of left knee pain, described as moderate, Quality is described as aching, Patient started experiencing this week(s) (1) and it has been constant. Rest improves symptom(s), Movement worsens symptoms . Patient notes no other symptoms.. Patient did receive the following treatments prior to arrival, NSAID Related Data Home Medications Medication Instructions Recorded Confirmed Unknown [No Known Home Meds] 02/25/22 02/25/22 Allergies Allergy/AdvReac Type Severity Reaction Status Date / Time bupropion AdvReac Headache, Verified 02/25/22 15:31 Night Sweats hydrocodone [From Vicodin] AdvReac Nausea Verified 02/25/22 15:31 [email or web address] AdvReac Headache Verified 02/25/22 15:31 General Stated Complaint: Orthopedic JULIANA: 4 Review of Systems All systems reviewed & are unremarkable except as noted in HPI and below Constitutional Constitutional: Denies chills, Denies fever(s) and Denies weakness Cardiovascular Cardiovascular: Denies chest pain and Denies dyspnea Respiratory Respiratory: Denies dyspnea Gastrointestinal Gastrointestinal: Denies abdominal pain and Denies vomiting Musculoskeletal Musculoskeletal: Denies joint swelling Integumentary/Breasts Skin/Breast: Denies rash Neurologic Neurologic: Denies weakness PFSH All Active Problems (Updated 02/25/22 @ 16:40 by Pérez Fam MD) Left knee sprain (Acute) Left shoulder pain (Acute) Radiating from left hand pain post fall. ROM significantly limited (unable to lift for deod this morning). 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 painful, but now rad up into shoulder. Splint brings on numbness of hand/arm. Hx Fx, Hx malformation post Fx. Hx CTrelease. Tobacco dependence syndrome (Acute 10/27/11) down to 3/day 04/2014; 05/2017 3-5/day Skin sensation disturbance (Acute 02/02/12) PARESTHESIAS IN MEDIAN NERVE DISTRIBUTION, S/P CTS SURG, EMG 2009 Overweight (Acute 10/27/11) Other chronic postoperative pain (Acute 08/23/07) OPIATES SINCE AT LEAST 2006 work injury; HAD PAIN CLINIC, INJECTIONS, SURG 2007; morphine d/c 04/2013 due to gi discomfort; FAMA 09/2009. nerve conduc 2010 Lumbago (Acute 08/23/91) 1992 [facility] LS SURG; 01/18/08 [facility] L45, L5S1; pain cllinic 02/2012; opioids since 2006 injury [facility]; LAST X-RAY 07/2011; LAST MRI [facility] 12/09/2007 Knee pain (Acute 01/20/13) LAST X-RAY 07/2011 NEG Gastroesophageal reflux disease without esophagitis (Acute 06/26/08) transition PPI to H2 fco fall 2013 Enthesopathy of hand (Acute 08/03/08) S/P BILAT CTS SURG; S/P NEG EMG 2009, SWELLING, Rheum CONSULT 2008; SHAWN L WRIST Esophageal reflux (Acute 06/26/08) transition PPI to H2 fco fall 2013 Complex regional pain syndrome of both upper extremities (Acute 09/23/09) Consult Rheum, Neuro 2009; shawn L wrist (is left handed) Chronic nonmalignant pain (Acute) OPIATES SINCE AT LEAST 2006 work injury; HAD PAIN CLINIC, INJECTIONS, SURG 2007; morphine d/c 04/2013 due to gi discomfort; FAMA 09/2009. nerve conduc 2009 Adjustment disorder, unspecified (Acute 07/03/16) Insomnia (Chronic) Back pain (Acute) Surgical History Appendectomy (08/23/88) Cholecystectomy Spinal Fusion (12/21/06) twice; most recent posterior fusion L4-S1 Social History Smoking/Tobacco Use Status: Current every day Tobacco Type: cigarettes Smoking risk assessment performed?: Yes Alcohol Intake: never Drug use: Never Substance use type: does not use Household members: spouse and children Housing: house Number of Children: 3 number of grandchildren: 1 What is your relationship status?: Panel score (0-1 are the most socially isolated patients): 1 What type of physical activity do you participate in: none Do you feel safe at home: Yes Do you feel safe in your relationship?: Yes Exam Const General: no acute distress Orientation: alert HENMT Head: normal to inspection Ears: external ears normal General nose exam: external nose normal Mouth: moist mucous membranes Eyes General: appearance normal, both eyes and all related structures Neck Neck: normal visual inspection Resp Effort & Inspection: normal respiratory effort and able to speak in complete sentences Cardio Rate: regular rate Skin General skin exam: no rashes or lesions noted Neuro General: patient alert and patient oriented x3 Extrem General: normal to inspection, full ROM and capillary refill normal Psych Mental Status: mental status grossly normal Course Vital Signs Vital signs: Vital Signs Temperature 36.8 C 02/25/22 15:27 Pulse 89 02/25/22 15:27 Respiratory Rate 17 02/25/22 15:27 Blood Pressure 121/78 02/25/22 15:27 Pulse Oximetry 99 02/25/22 15:27 Temperature 36.8 C 02/25/22 15:27 Temperature Source Temporal Artery Scan 02/25/22 15:27 Pulse 89 02/25/22 15:27 Respiratory Rate 17 02/25/22 15:27 Blood Pressure 121/78 02/25/22 15:27 Blood Pressure Position Sitting 02/25/22 15:27 Pulse Oximetry 99 02/25/22 15:27 Oxygen Delivery Method Room Air 02/25/22 15:27 Oxygen Flow Rate 0 02/25/22 15:27 Pain Level 9 02/25/22 15:27
[2022-02-25] MEDS: Acetaminophen 500 MG TAB 1000 MG PO (16:33)
== END 2022-02-25 16:45 | disposition home or self-care (01) ==
PROVIDERS: Emergency Provider Emergency Medicine; PCP Nurse Practitioner
DX: S83.8X2A Sprain of other specified parts of left knee, initial encounter (principal); X50.0XXA Overexertion from strenuous movement or load, initial encounter
CPT/HCPCS: 29505; 73562; 99283

== ENCOUNTER 2022-04-04 16:08 | Emergency (ER) | payer MEDICAID, SELFPAY ==
--- NOTE | 2022-04-04 16:12 | ED.GENADUL_ITS ---
Discharge Plan Disposition Patient Disposition: HOME Condition: Stable Discharge Details Clinical Impression: Abrasion, corneal Primary Care Provider: Kya Mcrae ED Provider: Santi Rich Home Meds and New Rx's Prescriptions: No Action No Known Home Meds Discharge Instructions Instructions: Corneal Abrasion (ED) Additional Instructions: Avoid pulling her eyes. Ilotycin as directed. [id number] lubricating drops as directed for symptomatic control. Please watch for new or worsening symptoms and return to the ER for any concerns. Otherwise I would like you to contact the [facility] on Wednesday to discuss your ER visit set up an outpatient reevaluation of your corneal abrasion. [facility] Medical Decision Making 47-year-old gentleman who does not require corrective lenses, reports tetanus status up-to-date, concern for getting a rust in his left eye a couple of hours ago while working under his vehicle. Visual acuities obtained, please see RN note. Patient denies blurry or double vision. Examination is consistent with a corneal abrasion patient. I do not see any obvious foreign body. We did discuss the importance of outpatient follow-up given the concern is rust, if there is retained foreign body could result in a rust ring. No evidence of rust ring at this time. First dose of Ilotycin given here. Standard discharge and return precautions were provided. Patient understands, is agreeable to this plan, and has no additional questions or concerns upon discharge. This documentation was generated using [employer] dictation system, please disregard any oddities of phrase or misspellings. Medical Records Medical records reviewed: Yes I reviewed the patient's medical records. HPI General Mode of arrival: ambulatory . Date/Time Provider Initiated Documentation: 04/04/22 16:12 . Limitations to Documentation: no limitations . Information obtained by: patient . History of Present Illness 47 year old M presents to the emergency department with the chief complaint of Left eye irritation, described as mild, with intensity rated at 2. Quality is described as other (Irritation), and is localized to the eyes and left. Patient reports no radiation. Patient started experiencing this hour(s) (2) and it has been constant. other things that improve symptom(s), (Flushes his eye) Other factors that worsen symptoms (Blinking) . Patient notes no other symptoms.. Patient did receive the following treatments prior to arrival, none Related Data Home Medications Medication Instructions Recorded Confirmed Unknown [No Known Home Meds] 02/25/22 02/25/22 Allergies Allergy/AdvReac Type Severity Reaction Status Date / Time bupropion AdvReac Headache, Verified 02/25/22 15:31 Night Sweats hydrocodone [From Vicodin] AdvReac Nausea Verified 02/25/22 15:31 [email or web address] AdvReac Headache Verified 02/25/22 15:31 General JULIANA: 4 Review of Systems Constitutional Constitutional: Denies headache(s) Eyes Eyes: Denies blurry vision, Denies change in vision, Reports irritation and Denies requires corrective lenses ENT Ears, Nose, Mouth, and Throat: Denies headache(s) Neurologic Neurologic: Denies headache(s) PFSH All Active Problems Abrasion, corneal (Acute) Left shoulder pain (Acute) Radiating from left hand pain post fall. ROM significantly limited (unable to lift for deod this morning). 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 painful, but now rad up into shoulder. Splint brings on numbness of hand/arm. Hx Fx, Hx malformation post Fx. Hx CTrelease. Tobacco dependence syndrome (Acute 10/27/11) down to 3/day 04/2014; 05/2017 3-5/day Skin sensation disturbance (Acute 02/02/12) PARESTHESIAS IN MEDIAN NERVE DISTRIBUTION, S/P CTS SURG, EMG 2009 Overweight (Acute 10/27/11) Other chronic postoperative pain (Acute 08/23/07) OPIATES SINCE AT LEAST 2006 work injury; HAD PAIN CLINIC, INJECTIONS, SURG 2007; morphine d/c 04/2013 due to gi discomfort; FAMA 09/2009. nerve conduc 2010 Lumbago (Acute 08/23/91) [place] [facility] SURG; 01/18/[place] [facility] [place], L5S1; pain cllinic 02/2012; opioids since 2006 injury [facility]; LAST X-RAY 07/2011; LAST MRI [facility] [place]2007 Knee pain (Acute 01/20/13) LAST X-RAY 07/2011 NEG Gastroesophageal reflux disease without esophagitis (Acute 06/26/08) transition PPI to H2 fco fall 2013 Enthesopathy of hand (Acute 08/03/08) S/P BILAT CTS SURG; S/P NEG EMG 2009, SWELLING, Rheum CONSULT 2008; SHAWN L WRIST Esophageal reflux (Acute 06/26/08) transition PPI to H2 fco fall 2013 Complex regional pain syndrome of both upper extremities (Acute 09/23/09) Consult Rheum, Neuro 2009; shawn L wrist (is left handed) Chronic nonmalignant pain (Acute) OPIATES SINCE AT LEAST 2006 work injury; HAD PAIN CLINIC, INJECTIONS, SURG 2007; morphine d/c 04/2013 due to gi discomfort; FAMA 09/2009. nerve conduc 2009 Adjustment disorder, unspecified (Acute 07/03/16) Insomnia (Chronic) Back pain (Acute) Surgical History Appendectomy (08/23/88) Cholecystectomy Spinal Fusion (12/21/06) twice; most recent posterior fusion L4-S1 Social History Smoking/Tobacco Use Status: Current every day Tobacco Type: cigarettes Smoking risk assessment performed?: Yes Alcohol Intake: never Drug use: Never Substance use type: does not use Household members: spouse and children Housing: house Number of Children: 3 number of grandchildren: 1 What is your relationship status?: Panel score (0-1 are the most socially isolated patients): 1 What type of physical activity do you participate in: none Do you feel safe at home: Yes Do you feel safe in your relationship?: Yes Exam Const General: cooperative, healthy appearing, comfortable and no acute distress Orientation: alert and awake [facility] Head: normal to inspection, normocephalic and atraumatic Face and sinus: normal facial exam Mouth: moist mucous membranes Eyes General: appearance normal, both eyes and all related structures Alignment and Position: alignment normal Periorbital: periorbital findings normal Eyelids: eyelids normal Conjunctivae: conjunctivae normal Sclera: sclerae normal Cornea: corneas abnormal on the left fluorescein used and abrasion central and fluorescein used Pupils: PERRL EOM: EOM intact bilaterally Direct ophthalmoscopy: normal light reflex Neck Neck: normal visual inspection, full ROM, trachea midline and supple Resp Effort & Inspection: normal respiratory effort and able to speak in complete sen tences Skin General skin exam: no rashes or lesions noted Neuro General: patient alert, patient awake, moves all extremities and no focal motor deficits Sensory Exam: no sensory deficits noted Psych Appearance: grossly normal Mental Status: mental status grossly normal
[2022-04-04 16:17] VITALS: BP 117/82; PULSE 92; RESP 22; TEMP 36.8; O2SAT 97
[2022-04-04] MEDS: Fluorescein STRIPS 100/BOX 1 MG (16:28)
[2022-04-04] MEDS: Tetracaine 0.5% 4 ML BTL (16:28)
== END 2022-04-04 16:57 | disposition home or self-care (01) ==
PROVIDERS: Emergency Provider Physician Assistant; PCP Nurse Practitioner
DX: S05.02XA Injury of conjunctiva and corneal abrasion without foreign body, left eye, initial encounter (principal); X58.XXXA Exposure to other specified factors, initial encounter
CPT/HCPCS: 99283

== ENCOUNTER 2022-05-20 15:32 | Emergency (ER) | payer MEDICAID, SELFPAY ==
[2022-05-20 15:36] VITALS: BP 119/75; PULSE 99; RESP 18; TEMP 36.9; O2SAT 100
--- NOTE | 2022-05-20 15:52 | W.ED.GENAD ---
Discharge Plan Disposition Patient Disposition: HOME Condition: Stable Discharge Details Clinical Impression: Cellulitis and abscess of hand Primary Care Provider: Kya Mcrae ED Provider: Trini Park Home Meds and New Rx's Prescriptions: New doxycycline monohydrate 100 mg capsule 100 mg PO Q12H 10 Days Qty: 20 0RF Discharge Instructions Instructions: Cellulitis (ED) Additional Instructions: Take ibuprofen and Tylenol as needed for pain Use the splint, the more you range her finger the longer it will take to heal Soak in warm water, 5 minutes every several hours Elevate is much as possible Take antibiotic as prescribed, yogurt daily while on antibiotic Should he develop dramatic worsening in your redness, fever, chills, or with any new or worsening complaints he will return immediately for reassessment The antibiotic takes approximately 48 hours to improve symptoms Referrals: Kya Mcrae, COMPOSITE TECHNICIAN [Primary Care Provider] - Discharge Data Discharge Date/Time-TO BE ENTERED AT DEPARTURE: 05/20/22 16:11 Medical Decision Making Patient with cellulitis to left middle finger abrasion noted, flexion extension intact, no evidence of tenosynovitis Placed in a splint and started on doxycycline Recheck in 48 hours recommended Motrin/ Tylenol as needed for pain Medical Records Medical records reviewed: Yes I reviewed the patient's medical records. HPI General Date/Time Provider Initiated Documentation: 05/20/22 15:48. HPI Narrative: This 47-year-old gentleman who is otherwise reportedly healthy presents with right third digit swelling and redness. Denies any fever or chills. Denies any chance of diabetes. Noticed it was red yesterday and reported extension today. Denies any additional complaints at this time. Related Data Home Medications Medication Instructions Recorded Confirmed doxycycline monohydrate 100 mg 100 mg PO Q12H 10 days #20 caps 05/20/22 capsule Previous Rx's Medication Instructions Recorded doxycycline monohydrate 100 mg 100 mg PO Q12H 10 days #20 caps 05/20/22 capsule Allergies Allergy/AdvReac Type Severity Reaction Status Date / Time bupropion AdvReac Headache, Verified 05/20/22 15:41 Night Sweats hydrocodone [From Vicodin] AdvReac Nausea Verified 05/20/22 15:41 [email or web address] AdvReac Headache Verified 05/20/22 15:41 General Stated Complaint: Cellulitis JULIANA: 3 Review of Systems All systems reviewed & are unremarkable except as noted in HPI and below PFSH All Active Problems (Updated 05/20/22 @ 15:58 by BEN Alvarado) Cellulitis and abscess of hand (Acute) Left shoulder pain (Acute) Radiating from left hand pain post fall. ROM significantly limited (unable to lift for deod this morning). 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 painful, but now rad up into shoulder. Splint brings on numbness of hand/arm. Hx Fx, Hx malformation post Fx. Hx CTrelease. Tobacco dependence syndrome (Acute 10/27/11) down to 3/day 04/2014; 05/2017 3-5/day Skin sensation disturbance (Acute 02/02/12) PARESTHESIAS IN MEDIAN NERVE DISTRIBUTION, S/P CTS SURG, EMG 2009 Overweight (Acute 10/27/11) Other chronic postoperative pain (Acute 08/23/07) OPIATES SINCE AT LEAST 2006 work injury; HAD PAIN CLINIC, INJECTIONS, SURG 2007; morphine d/c 04/2013 due to gi discomfort; FAMA 09/2009. nerve conduc 2010 Lumbago (Acute 08/23/91) 1992 [facility] [place] SURG[place] [facility] [place] L5S1; pain cllinic 02/2012; opioids since 2006 injury [facility]; LAST X-RAY 07/2011; [place] [facility] [place] Knee pain (Acute 01/20/13) LAST X-RAY 07/2011 NEG Gastroesophageal reflux disease without esophagitis (Acute 06/26/08) transition PPI to H2 fco fall 2013 Enthesopathy of hand (Acute 08/03/08) S/P BILAT CTS SURG; S/P NEG EMG 2009, SWELLING, Rheum CONSULT 2008; SHAWN L WRIST Esophageal reflux (Acute 06/26/08) transition PPI to H2 fco fall 2013 Complex regional pain syndrome of both upper extremities (Acute 09/23/09) Consult Rheum, Neuro 2009; shawn L wrist (is left handed) Chronic nonmalignant pain (Acute) OPIATES SINCE AT LEAST 2006 work injury; HAD PAIN CLINIC, INJECTIONS, SURG 2007; morphine d/c 04/2013 due to gi discomfort; FAMA 09/2009. nerve conduc 2009 Adjustment disorder, unspecified (Acute 07/03/16) Insomnia (Chronic) Back pain (Acute) Surgical History Appendectomy (08/23/88) Cholecystectomy Spinal Fusion (12/21/06) twice; most recent posterior fusion L4-S1 Social History Smoking/Tobacco Use Status: Current every day Tobacco Type: cigarettes Smoking risk assessment performed?: Yes Alcohol Intake: never Drug use: Never Substance use type: does not use Household members: spouse and children Housing: house Number of Children: 3 number of grandchildren: 1 What is your relationship status?: Panel score (0-1 are the most socially isolated patients): 1 What type of physical activity do you participate in: none Do you feel safe at home: Yes Do you feel safe in your relationship?: Yes Exam Const General: cooperative, comfortable and no acute distress Orientation: alert and oriented x3 Extrem Hand/finger images: 1. 2. erythema noted abrasion flexion and extension intact distal cap refill intact Course Vital Signs Vital signs: Vital Signs Temperature 36.9 C 05/20/22 15:36 Pulse 99 H 05/20/22 15:36 Respiratory Rate 18 05/20/22 15:36 Blood Pressure 119/75 05/20/22 15:36 Pulse Oximetry 100 05/20/22 15:36 Temperature 36.9 C 05/20/22 15:36 Temperature Source Oral 05/20/22 15:36 Pulse 99 H 05/20/22 15:36 Respiratory Rate 18 05/20/22 15:36 Respiratory Effort Non-Labored 05/20/22 15:39 Blood Pressure 119/75 05/20/22 15:36 Blood Pressure Position Sitting 05/20/22 15:36 Pulse Oximetry 100 05/20/22 15:36 Oxygen Delivery Method Room Air 05/20/22 15:36 Oxygen Flow Rate 0 05/20/22 15:36 Pain Level 8 05/20/22 15:36
== END 2022-05-20 16:11 | disposition home or self-care (01) ==
PROVIDERS: Emergency Provider Physician Assistant; PCP Nurse Practitioner
DX: L03.012 Cellulitis of left finger (principal); L02.512 Cutaneous abscess of left hand; F17.210 Nicotine dependence, cigarettes, uncomplicated
CPT/HCPCS: 29130; 99283

== ENCOUNTER 2024-04-05 16:04 | Emergency (ER) | payer MEDICAID, SELFPAY ==
[2024-04-05 16:25] VITALS: BP 129/86; PULSE 110; RESP 14; TEMP 36.2; O2SAT 98
--- NOTE | 2024-04-05 17:00 | DI.RAD_ITS ---
Exam(s) XR KNEE LT 3V AP,LAT,HANSEL EXAM: XR KNEE LT 3V AP,LAT,HANSEL CLINICAL HISTORY: left knee pain. TECHNIQUE: 2D digital imaging was performed. COMPARISON: No exams were available for comparison FINDINGS: 3 views No evidence of acute fracture nor prominent joint effusion. Bone density normal. No osseous lesions . No osteochondral defects. No osteophytes. There is minimal narrowing of the medial compartment. Lateral patellofemoral compartments appear unremarkable. IMPRESSION: No acute osseous findings in the knee. Very mild narrowing of the medial compartment noted. DATA REPOSITORY: RADIATION DOSE DELIVERED:
[2024-04-05] MEDS: oxyCODONE 5 MG TAB PO (17:22)
[2024-04-05 17:49] VITALS: BP 132/91; PULSE 99; RESP 16; O2SAT 97
[2024-04-05 18:59] VITALS: BP 140/92; PULSE 104; TEMP 36.2; O2SAT 98
--- NOTE | 2024-04-05 19:51 | ED.GENADUL_ITS ---
Discharge Plan Disposition Patient Disposition: Home Condition: Stable Discharge Details Clinical Impression: Injury of knee, left Primary Care Provider: Kya Mcrae ED Provider: Trini Park Home Meds and New Rx's Prescriptions: New diclofenac sodium [Aleve (diclofenac)] 1 % gel 4.5 inch topical QID Qty: 100 0RF Rx Instructions: apply to single elbow, wrist or hand; for hand includes palm/fingers/back of hand Continued naproxen sodium [Aleve] 220 mg tablet 440 mg PO DAILY Discharge Instructions Instructions: Knee Pain ED Additional Instructions: Apply diclofenac as prescribed for pain Please follow-up with orthopedics with persistent pain greater than 1 week You may take Tylenol 650 every 6 hours as needed for discomfort and ibuprofen 600 mg every 8 hours for breakthrough pain Wear your hinged knee brace for comfort and return earlier should you have new or worsening complaints Stand Alone Forms: Work Release Referrals: Jakob Montelongo MD [ [facility] STAFF PHYSICIAN] - HPI General Date/Time Provider Initiated Documentation: 04/05/24 17:04 . HPI Narrative: This 49-year-old male presents with injury to left knee. Was walking on the steps and felt a cracking sensation. Has had pain since that time. Event occurred today. Denies feeling like the joint is unstable. Denies prior injuries in the past. Related Data Home Medications ?Medication ?Instructions ?Recorded ?Confirmed naproxen sodium 220 mg tablet 440 mg PO DAILY 09/24/22 04/05/24 (Aleve) diclofenac sodium 1 % topical gel 4.5 inch topical QID #100 grams 04/05/24 (Aleve (diclofenac)) Previous Rx's ?Medication ?Instructions ?Recorded diclofenac sodium 1 % topical gel 4.5 inch topical QID #100 grams 04/05/24 (Aleve (diclofenac)) Allergies Allergy/AdvReac Type Severity Reaction Status Date / Time ketorolac (From Toradol) AdvReac Intermediate Headache Verified 04/05/24 16:30 bupropion AdvReac Headache, Verified 04/05/24 16:30 Night Sweats hydrocodone (From Vicodin) AdvReac Nausea Verified 04/05/24 16:30 [email or web address] AdvReac Headache Verified 04/05/24 16:30 General Stated Complaint: Orthopedic JULIANA: 4 Exam Narrative Exam Narrative: Left knee with tenderness predominantly overlying the medial aspect, no palpable effusion or redness. No joint laxity. Flexion and extension intact. Course Vital Signs Vital signs: Vital Signs Temperature 36.2 C L 04/05/24 16:25 Pulse 110 H 04/05/24 16:25 Respiratory Rate 14 04/05/24 16:25 Blood Pressure 129/86 04/05/24 16:25 Pulse Oximetry 98 04/05/24 16:25 Temperature 36.2 C L 04/05/24 18:59 Temperature Source Tympanic 04/05/24 18:59 Pulse 104 H 04/05/24 18:59 Respiratory Rate 16 04/05/24 17:49 Respiratory Effort Normal, Non-Labored 04/05/24 17:49 Respiratory Depth Normal 04/05/24 17:49 Respiratory Pattern Normal 04/05/24 17:49 Blood Pressure 140/92 H 04/05/24 18:59 Blood Pressure Mean 104 04/05/24 17:49 Pulse Oximetry 98 04/05/24 18:59 Oxygen Delivery Method Room Air 04/05/24 18:59 Oxygen Flow Rate 0 04/05/24 18:59 Pain Level 9 04/05/24 18:59 Medical Decision Making 49-year-old male presents with left knee injury. X-ray was ordered which does not show evidence of acute abnormality per my review pending radiology interpretation. Placed in a hinged knee brace and given diclofenac gel. Recheck in 1 week recommended, work note supplied Clinically low suspicion for DVT and neurovascularly intact. Discharged home in stable condition with stable vitals Quality:SDOH Health Related Social Needs: No Data to Display PFSH All Active Problems (Updated 04/05/24 @ 18:36 by BEN Alvarado) Injury of knee, left (Acute) Left shoulder pain (Acute) Radiating from left hand pain post fall. ROM significantly limited (unable to lift for deod this morning). 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 painful, but now rad up into shoulder. Splint brings on numbness of hand/arm. Hx Fx, Hx malformation post Fx. Hx CTrelease. Tobacco dependence syndrome (Acute 10/27/11) down to 3/day 04/2014; 05/2017 3-5/day Skin sensation disturbance (Acute 02/02/12) PARESTHESIAS IN MEDIAN NERVE DISTRIBUTION, S/P CTS SURG, EMG 2009 Overweight (Acute 10/27/11) Other chronic postoperative pain (Acute 08/23/07) OPIATES SINCE AT LEAST 2006 work injury; HAD PAIN CLINIC, INJECTIONS, SURG 2007; morphine d/c 04/2013 due to gi discomfort; FAMA 09/2009. nerve conduc 2009 Lumbago (Acute 08/23/91) 1992 [facility] LS SURG; 01/18/08 [facility] [place] L45, L5S1; pain cllinic 02/2012; opioids since 2006 injury [facility]; LAST X-RAY 07/2011; LAST MRI [facility] [place]/09/2007 Knee pain (Acute 01/20/13) LAST X-RAY 07/2011 NEG Gastroesophageal reflux disease without esophagitis (Acute 06/26/08) transition PPI to H2 fco fall 2013 Enthesopathy of hand (Acute 08/03/08) S/P BILAT CTS SURG; S/P NEG EMG 2009, SWELLING, Rheum CONSULT 2008; SHAWN L WRIST Esophageal reflux (Acute 06/26/08) transition PPI to H2 fco fall 2013 Complex regional pain syndrome of both upper extremities (Acute 09/23/09) Consult Rheum, Neuro 2009; shawn L wrist (is left handed) Chronic nonmalignant pain (Acute) OPIATES SINCE AT LEAST 2006 work injury; HAD PAIN CLINIC, INJECTIONS, SURG 2007; morphine d/c 04/2013 due to gi discomfort; FAMA 09/2009. nerve conduc 2009 Adjustment disorder, unspecified (Acute 07/03/16) Insomnia (Chronic) Back pain (Acute) Surgical History Spinal Fusion (12/21/06) twice; most recent posterior fusion L4-S1 Cholecystectomy Appendectomy (08/23/88) Social History Smoking/Tobacco Use Status: Current every day Tobacco Type: cigarettes Smoking risk assessment performed?: Yes Alcohol Intake: never Drug use: Never Substance use type: does not use Household members: spouse and children Housing: house Number of Children: 3 number of grandchildren: 1 What is your relationship status?: Panel score (0-1 are the most socially isolated patients): 1 What type of physical activity do you participate in: none Do you feel safe at home: Yes Do you feel safe in your relationship?: Yes
== END 2024-04-05 18:31 | disposition home or self-care (01) ==
PROVIDERS: Emergency Provider Physician Assistant; PCP Nurse Practitioner
DX: M25.562 Pain in left knee (principal); X50.0XXA Overexertion from strenuous movement or load, initial encounter
CPT/HCPCS: 29505; 73562; 99283

== ENCOUNTER 2024-07-19 09:04 | Emergency (ER) | payer MEDICAID, SELFPAY ==
[2024-07-19 09:07] VITALS: BP 154/106; PULSE 91; RESP 12; TEMP 36.4; O2SAT 97
--- NOTE | 2024-07-19 09:12 | W.ED.GENAD ---
Discharge Plan Disposition Patient Disposition: Home Condition: Good Discharge Details Clinical Impression: Conjunctivitis Primary Care Provider: Kya Mcrae ED Provider: Sendy Turcios Home Meds and New Rx's Prescriptions: New polymyxin B sulf-trimethoprim 10,000 unit- 1 mg/mL drops 1 drp ophthalmic (eye) Q4H WHILE AWAKE Qty: 10 0RF Rx Instructions: while awake; do not exceed 4 doses in 24 hours Continued naproxen sodium [Aleve] 220 mg tablet 440 mg PO DAILY diclofenac sodium [Aleve (diclofenac)] 1 % gel 4.5 inch topical QID Qty: 100 0RF Rx Instructions: apply to single elbow, wrist or hand; for hand includes palm/fingers/back of hand Discharge Instructions Instructions: Conjunctivitis ([facility]) ED Additional Instructions: Your reddened eye is possibly due to a bacterial infection, though allergic conjunctivitis is also likely based on your exposure to pet dander and dust in the home. Please use the eyedrops in your right eye as prescribed, 1 drop every 4 hours while awake (4 times a day). You may also use cool compresses if you develop any itching or discomfort. For allergy symptoms I recommend using [id number] cetirizine; generic is available. You may go to work with mild pinkeye symptoms, but practice excellent hand hygiene and do not touch your eyes or face while at work. If you do, wash your hands immediately. Wear gloves during your shift. Return to emergency care immediately if develop new eye pain, headaches associated with pink eye, vision changes, protrusion of the eye, or if you are very worried and need to be rechecked again immediately. Stand Alone Forms: Work Release HPI General Date/Time Provider Initiated Documentation: 07/19/24 09:08. HPI Narrative: Thomas is a 49year old male who presents to the emergency department today for evaluation of redness to his right eye. He woke up this morning feeling fine, went to work and noticed that his eye was red with a small amount of greenish discharge at the corner. He denies any associated symptoms with this, says he is otherwise feeling well other than congestion which has been ongoing for a while. He reports that this is his first winter in a new home, has many animals at home and thinks that his eye redness may be due to allergic conjunctivitis, which he has experienced previously with similar exposures. He denies associated fever/chills, eye pain, headache, vision changes, photophobia, itching, foreign body sensation. Past medical history is significant for eye surgery to open up tear ducts as a baby. Does not wear contacts. No ocular issues as an adult. Denies other significant past medical history. No known contacts with marciae at work or home. Physical exam reassuring, conjunctival injection noted to the right eye. PERRL, EOMs intact with painless range of motion. No drainage at this time. No foreign body visualized. No eyelid abnormality noted or periorbital swelling. No submandibular mandibular lymphadenopathy. Easy work of breathing. Visual acuity performed by JESSICA Sims; 20/20 bilaterally D/dx includes but is not limited to: Allergic conjunctivitis, bacterial conjunctivitis, viral conjunctivitis, episcleritis. No red flags concerning for serious etiology of eye pain such as acute closure glaucoma, infectious keratitis, neuritis based on reassuring physical exam and history. As patient had greenish discharge, will treat for bacterial conjunctivitis. Also recommend addressing allergic symptoms with [id number] Claritin. Reviewed discharge instructions with patient, including symptomatic management and red flags indicating need for return to emergency care Related Data Home Medications ?Medication ?Instructions ?Recorded ?Confirmed naproxen sodium 220 mg tablet 440 mg PO DAILY 09/24/22 07/19/24 (Aleve) diclofenac sodium 1 % topical gel 4.5 inch topical QID #100 grams 04/05/24 07/19/24 (Aleve (diclofenac)) polymyxin B sulfate 10,000 1 drp ophthalmic (eye) Q4H WHILE 07/19/24 unit-trimethoprim 1 mg/mL eye drops AWAKE #10 mL Previous Rx's ?Medication ?Instructions ?Recorded diclofenac sodium 1 % topical gel 4.5 inch topical QID #100 grams 04/05/24 (Aleve (diclofenac)) polymyxin B sulfate 10,000 1 drp ophthalmic (eye) Q4H WHILE 07/19/24 unit-trimethoprim 1 mg/mL eye drops AWAKE #10 mL Allergies Allergy/AdvReac Type Severity Reaction Status Date / Time ketorolac (From Toradol) AdvReac Intermediate Headache Verified 07/19/24 09:14 bupropion AdvReac Headache, Verified 07/19/24 09:14 Night Sweats hydrocodone (From Vicodin) AdvReac Nausea Verified 07/19/24 09:14 [email or web address] AdvReac Headache Verified 07/19/24 09:14 General Stated Complaint: EyeProblem JULIANA: 4 Review of Systems Narrative: see HPI Exam Const General: cooperative, healthy appearing, comfortable and no acute distress Nutritional Appearance: average body habitus [facility] Head: normal to inspection Ears: hearing grossly normal bilaterally General nose exam: external nose normal Face and sinus: normal facial exam Eyes Periorbital: periorbital findings normal Eyelids: eyelids normal Conjunctivae: conjunctival abnormality right conjunctival injection; without subconjunctival hemmorhages Pupils: PERRL EOM: EOM intact bilaterally Neck Neck: normal visual inspection and no lymphadenopathy Neuro General: patient alert, patient oriented x3 and tone normal Cranial Nerves: PERRL, EOM intact bilaterally and facial strength normal Cognition: normal cognition Speech: speech normal Course Vital Signs Vital signs: Vital Signs Temperature 36.4 C L 07/19/24 09:07 Pulse 91 H 07/19/24 09:07 Respiratory Rate 12 07/19/24 09:07 Blood Pressure 154/106 H 07/19/24 09:07 Pulse Oximetry 97 07/19/24 09:07 Temperature 36.4 C L 07/19/24 09:07 Temperature Source Oral 07/19/24 09:07 Pulse 91 H 07/19/24 09:07 Respiratory Rate 12 07/19/24 09:07 Respiratory Effort Normal, Non-Labored 07/19/24 09:10 Blood Pressure 154/106 H 07/19/24 09:07 Blood Pressure Position Sitting 07/19/24 09:07 Pulse Oximetry 97 07/19/24 09:07 Oxygen Delivery Method Room Air 07/19/24 09:07 Oxygen Flow Rate 0 07/19/24 09:07 Pain Level 0 07/19/24 09:07 Medical Decision Making Quality:SDOH Health Related Social Needs: No Data to Display PFSH All Active Problems (Updated 07/19/24 @ 09:24 by Sendy Power) Conjunctivitis (Acute) Left shoulder pain (Acute) Radiating from left hand pain post fall. ROM significantly limited (unable to lift for deod this morning). 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 painful, but now rad up into shoulder. Splint brings on numbness of hand/arm. Hx Fx, Hx malformation post Fx. Hx CTrelease. Tobacco dependence syndrome (Acute 10/27/11) down to 3/day 04/2014; 05/2017 3-5/day Skin sensation disturbance (Acute 02/02/12) PARESTHESIAS IN MEDIAN NERVE DISTRIBUTION, S/P CTS SURG, EMG 2009 Overweight (Acute 10/27/11) Other chronic postoperative pain (Acute 08/23/07) OPIATES SINCE AT LEAST 2006 work injury; HAD PAIN CLINIC, INJECTIONS, SURG 2007; morphine d/c 04/2013 due to gi discomfort; FAMA 09/2009. nerve conduc 2010 Lumbago (Acute 08/23/91) 1992 MIR LS SURG; [place] [facility] [place], L5S1; pain cllinic 02/2012; opioids since 2006 injury [facility]; LAST X-RAY 07/2011; [place] [facility] [place] Knee pain (Acute 01/20/13) LAST X-RAY 07/2011 NEG Gastroesophageal reflux disease without esophagitis (Acute 06/26/08) transition PPI to H2 fco fall 2013 Enthesopathy of hand (Acute 08/03/08) S/P BILAT CTS SURG; S/P NEG EMG 2009, SWELLING, Rheum CONSULT 2008; SHAWN L WRIST Esophageal reflux (Acute 06/26/08) transition PPI to H2 fco fall 2013 Complex regional pain syndrome of both upper extremities (Acute 09/23/09) Consult Rheum, Neuro 2009; shawn L wrist (is left handed) Chronic nonmalignant pain (Acute) OPIATES SINCE AT LEAST 2006 work injury; HAD PAIN CLINIC, INJECTIONS, SURG 2007; morphine d/c 04/2013 due to gi discomfort; FAMA 09/2009. nerve conduc 2010 Adjustment disorder, unspecified (Acute 07/03/16) Insomnia (Chronic) Back pain (Acute) Surgical History Spinal Fusion (12/21/06) twice; most recent posterior fusion L4-S1 Cholecystectomy Appendectomy (08/23/88) Social History Smoking/Tobacco Use Status: Current every day Tobacco Type: cigarettes Smoking risk assessment performed?: Yes Alcohol Intake: never Drug use: Never Substance use type: does not use Household members: spouse and children Housing: house Number of Children: 3 number of grandchildren: 1 What is your relationship status?: Panel score (0-1 are the most socially isolated patients): 1 What type of physical activity do you participate in: none Do you feel safe at home: Yes Do you feel safe in your relationship?: Yes
== END 2024-07-19 09:43 | disposition home or self-care (01) ==
LOC: ER 09:40
PROVIDERS: Emergency Provider Nurse Practitioner Family; PCP Nurse Practitioner
DX: H10.31 Unspecified acute conjunctivitis, right eye (principal)
CPT/HCPCS: 99282; 99283

== ENCOUNTER 2025-01-01 15:05 | Emergency (ER) | payer SELFPAY ==
[2025-01-01 15:07] VITALS: BP 142/85; PULSE 106; RESP 16; TEMP 36.3; O2SAT 98
--- NOTE | 2025-01-01 15:24 | W.ED.GENAD ---
Discharge Plan Disposition Patient Disposition: Home Condition: Stable Discharge Details Clinical Impression: Low back strain Primary Care Provider: Kya Mcrae ED Provider: Pérez Fam Home Meds and New Rx's Prescriptions: New cyclobenzaprine 10 mg tablet 10 mg PO TID PRNQty: 20 0RF Discharge Instructions Additional Instructions: Your x-ray did not show any acute findings. You can take 1000 mg of acetaminophen and 600 mg of ibuprofen every 6 hours as needed. If not improving within 1 to 2 weeks follow-up with your primary care provider. If you feel significantly more ill or have any symptoms such as high fevers return to the emergency room for reevaluation. HPI General Mode of arrival: ambulatory. Date/Time Provider Initiated Documentation: 01/01/25 15:09. Limitations to Documentation: no limitations. Information obtained by: patient. History of Present Illness 49 year old M presents to the emergency department with the chief complaint of right lower back pain, described as moderate, Quality is described as aching, and is localized to the back and right. Patient reports no radiation. Patient started experiencing this hour(s) (2) and it has been constant. No relieving factors improve symptom(s), No exacerbating factors reported . Patient notes no other symptoms.. Patient did receive the following treatments prior to arrival, none Related Data Home Medications ?Medication ?Instructions ?Recorded ?Confirmed cyclobenzaprine 10 mg tablet 10 mg PO TID PRN #20 tabs 01/01/25 Previous Rx's ?Medication ?Instructions ?Recorded cyclobenzaprine 10 mg tablet 10 mg PO TID PRN #20 tabs 01/01/25 Allergies Allergy/AdvReac Type Severity Reaction Status Date / Time ketorolac (From Toradol) AdvReac Intermediate Headache Verified 01/01/25 15:09 bupropion AdvReac Headache, Verified 01/01/25 15:09 Night Sweats hydrocodone (From Vicodin) AdvReac Nausea Verified 01/01/25 15:09 [email or web address] AdvReac Headache Verified 01/01/25 15:09 General Stated Complaint: Nk/Back Pain JULIANA: 4 Review of Systems All systems reviewed & are unremarkable except as noted in HPI and below Constitutional Constitutional: Denies chills, Denies fever(s) and Denies weakness Cardiovascular Cardiovascular: Denies chest pain and Denies dyspnea Respiratory Respiratory: Denies cough and Denies dyspnea Gastrointestinal Gastrointestinal: Denies abdominal pain, Denies nausea and Denies vomiting Musculoskeletal Musculoskeletal: Reports back pain and Denies joint swelling Neurologic Neurologic: Denies weakness Psychiatric Psychiatric: Denies depression Exam Const General: no acute distress Orientation: alert HENTN Head: normal to inspection Ears: external ears normal General nose exam: external nose normal Mouth: moist mucous membranes Eyes General: appearance normal, both eyes and all related structures Neck Neck: normal visual inspection Resp Effort & Inspection: normal respiratory effort and able to speak in complete sentences Cardio Rate: regular rate GI Palpation: soft and nontender Back/Spine/Pelvis Back: no CVA tenderness, No erythema and No warmth Skin General skin exam: no rashes or lesions noted Neuro General: patient alert and patient oriented x3 Extrem General: normal to inspection Psych Mental Status: mental status grossly normal Course Vital Signs Vital signs: Vital Signs Temperature 36.3 C L 01/01/25 15:07 Pulse 106 H 01/01/25 15:07 Respiratory Rate 16 01/01/25 15:07 Blood Pressure 142/85 H 01/01/25 15:07 Pulse Oximetry 98 01/01/25 15:07 Temperature 36.3 C L 01/01/25 15:07 Pulse 106 H 01/01/25 15:07 Respiratory Rate 16 01/01/25 15:07 Blood Pressure 142/85 H 01/01/25 15:07 Pulse Oximetry 98 01/01/25 15:07 Pain Level 10 01/01/25 15:07 Medical Decision Making 49-year-old male associated back surgeries over 17 years ago and was feeling well and was at work bending down and he stood up and had acute onset right lower back pain. Denies any vomiting, fevers, urinary symptoms, IV drug use. He localizes the pain to the right lower lumbar region without visible or palpable deformities. He has no saddle anesthesia, intact distal sensation and pulses in his legs. I suspect disc herniation versus muscle spasm versus back strain, will treat his symptoms with ibuprofen and Valium for muscle relaxation and obtain x-rays of the lumbar spine though suspicion for fracture is low. No findings on exam or history to suggest cauda equina or spinal epidural abscess. Patient stable, x-ray shows no acute findings. Still has no saddle anesthesia or concerning findings on exam. Suspect back strain versus disc herniation, he is stable for discharge and will follow-up with his PCP if needed return precautions given. Differential Diagnosis Differential Diagnosis: Muscle spasm, fracture, disc herniation Quality:SDOH Health Related Social Needs: No Data to Display PFSH All Active Problems (Updated 01/01/25 @ 16:41 by Pérez Fam MD) Low back strain (Acute) Left shoulder pain (Acute) Radiating from left hand pain post fall. ROM significantly limited (unable to lift for deod this morning). 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 painful, but now rad up into shoulder. Splint brings on numbness of hand/arm. Hx Fx, Hx malformation post Fx. Hx CTrelease. Tobacco dependence syndrome (Acute 10/27/11) down to 3/day 04/2014; 05/2017 3-5/day Skin sensation disturbance (Acute 02/02/12) PARESTHESIAS IN MEDIAN NERVE DISTRIBUTION, S/P CTS SURG, EMG 2009 Overweight (Acute 10/27/11) Other chronic postoperative pain (Acute 08/23/07) OPIATES SINCE AT LEAST 2006 work injury; HAD PAIN CLINIC, INJECTIONS, SURG 2007; morphine d/c 04/2013 due to gi discomfort; FAMA 09/2009. nerve conduc 2010 Lumbago (Acute 08/23/91) 1992 [facility] [place] [facility] [place] L[place]S1; pain cllinic 02/2012; opioids since 2006 injury [facility]; LAST X-RAY 07/2011; [place] [facility] [place] Knee pain (Acute 01/20/13) LAST X-RAY 07/2011 NEG Gastroesophageal reflux disease without esophagitis (Acute 06/26/08) transition PPI to H2 fco fall 2013 Enthesopathy of hand (Acute 08/03/08) S/P BILAT CTS SURG; S/P NEG EMG 2009, SWELLING, Rheum CONSULT 2008; SHAWN L WRIST Esophageal reflux (Acute 06/26/08) transition PPI to H2 fco fall 2013 Complex regional pain syndrome of both upper extremities (Acute 09/23/09) Consult Rheum, Neuro 2009; shawn L wrist (is left handed) Chronic nonmalignant pain (Acute) OPIATES SINCE AT LEAST 2006 work injury; HAD PAIN CLINIC, INJECTIONS, SURG 2007; morphine d/c 04/2013 due to gi discomfort; FAMA 09/2009. nerve conduc 2010 Adjustment disorder, unspecified (Acute 07/03/16) Insomnia (Chronic) Back pain (Acute) Surgical History Spinal Fusion (12/21/06) twice; most recent posterior fusion L4-S1 Cholecystectomy Appendectomy (08/23/88) Social History Smoking/Tobacco Use Status: Current every day Tobacco Type: cigarettes Smoking risk assessment performed?: Yes Alcohol Intake: never Drug use: Never Substance use type: does not use Household members: spouse and children Housing: house Number of Children: 3 number of grandchildren: 1 What is your relationship status?: Panel score (0-1 are the most socially isolated patients): 1 What type of physical activity do you participate in: none Do you feel safe at home: Yes Do you feel safe in your relationship?: Yes
[2025-01-01] MEDS: diazePAM 10 MG/2 ML SYR 5 MG IM (15:32)
[2025-01-01] MEDS: Ibuprofen 600 MG TAB PO (15:32)
--- NOTE | 2025-01-01 15:56 | DI.RAD_ITS ---
Exam(s) XR LUMBAR SPINE COMPLETE EXAM: XR LUMBAR SPINE COMPLETE CLINICAL HISTORY: lower back pain. TECHNIQUE: 2D digital imaging was performed. COMPARISON: CR LUMBAR SPINE AP, LAT from 07/23/2011 FINDINGS: Five views Again noted is tri level posterior fusion hardware at L4-5-S1 levels with bilateral vertical rods the se levels ingrid by bilateral intrapedicular screws at these 3 levels. The hardware appears intact an d stable. No hardware loosening nor migration. There is also bone graft material at these 3 levels evident posteriorly. When compared to the 2011 study there is now significant disc space narrowing at L2-3 level with ante rior osseous lipping at this level as well as posterior bony ridging, not evident on the prior images of 2011. There is mild disc space narrowing at L 3-4 level which is 1 level above fusion. Also mil d disc space narrowing at L1-2 level and anterior osseous lipping. At the fusion levels the intervertebral disc space device at L4-5 level exhibits unchanged position. No evidence of retropulsion of this disc space device and position markers of this device are unchan ged from 2011. the appearance of the fused levels is unchanged. Sacroiliac joints appear unremarkabl e. IMPRESSION: Stable tri level fusion L4-L5-S1 There is disc space narrowing now evident at other levels, most prominent at L2-3. Suspect that ther e may be an element of spinal canal stenosis at this level. DATA REPOSITORY: RADIATION DOSE DELIVERED:
[2025-01-01 16:03] VITALS: BP 135/91; PULSE 98; RESP 17; O2SAT 99
[2025-01-01] MEDS: MORPHine IR 15 MG TAB, 4 TABS/BTL PO (16:46)
== END 2025-01-01 16:43 | disposition home or self-care (01) ==
LOC: ER 16:42
PROVIDERS: Emergency Provider Emergency Medicine; PCP Nurse Practitioner
DX: S39.012A Strain of muscle, fascia and tendon of lower back, initial encounter (principal); X58.XXXA Exposure to other specified factors, initial encounter; Y99.0 Civilian activity done for income or pay
CPT/HCPCS: 99283; 99284; 96372; 72110; J3360

== ENCOUNTER 2025-06-15 20:32 | Emergency (ER) | payer SELFPAY ==
[2025-06-15 20:35] VITALS: BP 141/93; PULSE 109; RESP 18; TEMP 36.3; O2SAT 95
--- NOTE | 2025-06-15 20:40 | ED.GENADUL_ITS ---
Discharge Plan Disposition Patient Disposition: Home Condition: Good Discharge Details Clinical Impression: Low back strain Primary Care Provider: Kya Mcrae ED Provider: Fili Zhou Meds and New Rx's Prescriptions: New methocarbamol 500 mg tablet 1,000 mg PO TID Qty: 20 0RF Discharge Instructions Instructions: Muscle Strain ED Additional Instructions: You were seen in the ED for low back injury with a reassuring exam. Would recommend taking the weekend off and resting. Ice the area on and off for the first 24 hours. May switch over to heat after. Alternate 1 g of acetaminophen with 600 mg of ibuprofen every 4 hours. A prescription for a muscle relaxer has been sent to pharmacy which you may take 3 times a day. No alcohol or driving while using. Follow-up with primary care early next week if you are not improving. Return to ED for any severe worsening pain, bladder or bowel dysfunction, numbness or weakness to the legs. Stand Alone Forms: Work Release Referrals: [facility] [Provider Group] HPI General Mode of arrival: ambulatory . Date/Time Provider Initiated Documentation: 06/15/25 20:40 . Limitations to Documentation: no limitations . Information obtained by: patient and RN notes reviewed . HPI Narrative: Patient presents to ED with right lower back pain after his dog took off while he was holding the leash. Patient fell to the ground landing on his right lower back and dragged across the ground a short way. Patient denies striking his head. He has no neck pain or upper back pain. No rib pain or difficulty breathing. He has urinated since the incident and there is no blood in his urine. He has no abdominal pain. He has no neurologic symptoms. He is supposed to be going to work tonight but is having significant discomfort and tightness. 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 Related Data Home Medications ?Medication ?Instructions ?Recorded ?Confirmed methocarbamol 500 mg tablet 1,000 mg (2 x 500 mg) PO T ID #20 06/15/25 tabs Previous Rx's ?Medication ?Instructions ?Recorded methocarbamol 500 mg tablet 1,000 mg (2 x 500 mg) PO T ID #20 06/15/25 tabs Allergies Allergy/AdvReac Type Severity Reaction Status Date / Time ketorolac (From Toradol) AdvReac Intermediate Headache Verified 06/15/25 20:38 bupropion AdvReac Headache, Verified 06/15/25 20:38 Night Sweats hydrocodone (From Vicodin) AdvReac Nausea Verified 06/15/25 20:38 varenicline AdvReac Headache Verified 06/15/25 20:38 General Stated Complaint: Fall/Non TraumaCriteria JULIANA: 4 Exam Narrative Exam Narrative: Const: WDWN male in NAD. VS per triage. HEENT: NC/AT. Normal facial exam. Neck: Supple. Trachea midline. Lungs: Normal respiratory effort. Back: No midline TLS tenderness. Superficial abrasion to right lower back with some mild tenderness and tightness in the muscle. Neuro: A+O x 3. Normal speech, mentation, gait. Cranial nerves II - XII grossly intact. No gross motor or sensory deficit. Ext: Normal ROM. Course Vital Signs Vital signs: Vital Signs Temperature 97.3 F L 06/15/25 20:35 Pulse 109 H 06/15/25 20:35 Respiratory Rate 18 06/15/25 20:35 Blood Pressure 141/93 H 06/15/25 20:35 Pulse Oximetry 95 06/15/25 20:35 Temperature 97.3 F L 06/15/25 20:35 Pulse 109 H 06/15/25 20:35 Respiratory Rate 18 06/15/25 20:35 Blood Pressure 141/93 H 06/15/25 20:35 Pulse Oximetry 95 06/15/25 20:35 Pain Level 6 06/15/25 20:35 Medical Decision Making Patient presenting to ED with right low back pain after injury. He has no TLS spine tenderness. He has normal range of motion of extremities. He has no neurologic change. Pain is likely related to strain and contusion from being yanked to the ground by his dog. Will provide a work note for tonight. Will start on methocarbamol for spasm and recommend alternating acetaminophen with ibuprofen for pain. Follow-up with primary care next week if not improving. Return precautions provided. PFSH All Active Problems (Updated 06/15/25 @ 20:48 by Fili Zhou MD) Low back strain (Acute) Left shoulder pain (Acute) Radiating from left hand pain post fall. ROM significantly limited (unable to lift for deod this morning). 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 painful, but now rad up into shoulder. Splint brings on numbness of hand/arm. Hx Fx, Hx malformation post Fx. Hx CTrelease. Tobacco dependence syndrome (Acute 10/27/11) down to 3/day 04/2014; 05/2017 3-5/day Skin sensation disturbance (Acute 02/02/12) PARESTHESIAS IN MEDIAN NERVE DISTRIBUTION, S/P CTS SURG, EMG 2009 Overweight (Acute 10/27/11) Other chronic postoperative pain (Acute 08/23/07) OPIATES SINCE AT LEAST 2006 work injury; HAD PAIN CLINIC, INJECTIONS, SURG 2007; morphine d/c 04/2013 due to gi discomfort; FAMA 09/2009. nerve conduc 2010 Lumbago (Acute 08/23/91) 1992 MIR LS SURG; 01/18/08 [facility] L45, L5S1; pain cllinic 02/2012; opioids since 2006 injury [facility]; LAST X-RAY 07/2011; LAST MRI [facility] 12/09/2007 Knee pain (Acute 01/20/13) LAST X-RAY 07/2011 NEG Gastroesophageal reflux disease without esophagitis (Acute 06/26/08) transition PPI to H2 fco fall 2013 Enthesopathy of hand (Acute 08/03/08) S/P BILAT CTS SURG; S/P NEG EMG 2009, SWELLING, Rheum CONSULT 2008; SHAWN L WRIST Esophageal reflux (Acute 06/26/08) transition PPI to H2 fco fall 2013 Complex regional pain syndrome of both upper extremities (Acute 09/23/09) Consult Rheum, Neuro 2009; shawn L wrist (is left handed) Chronic nonmalignant pain (Acute) OPIATES SINCE AT LEAST 2006 work injury; HAD PAIN CLINIC, INJECTIONS, SURG 2007; morphine d/c 04/2013 due to gi discomfort; FAMA 09/2009. nerve conduc 2010 Adjustment disorder, unspecified (Acute 07/03/16) Insomnia (Chronic) Back pain (Acute) Surgical History Spinal Fusion (12/21/06) twice; most recent posterior fusion L4-S1 Cholecystectomy Appendectomy (08/23/88) Social History Smoking/Tobacco Use Status: Current every day Tobacco Type: cigarettes Smoking risk assessment performed?: Yes Alcohol Intake: never Drug use: Never Substance use type: does not use Household members: spouse and children Housing: house Number of Children: 3 number of grandchildren: 1 What is your relationship status?: Panel score (0-1 are the most socially isolated patients): 1 What type of physical activity do you participate in: none Do you feel safe at home: Yes Do you feel safe in your relationship?: Yes
[2025-06-15] MEDS: Methocarbamol 500 MG TAB 1000 MG PO (20:49)
== END 2025-06-15 20:55 | disposition home or self-care (01) ==
LOC: ER 21:30
PROVIDERS: Emergency Provider Emergency Medicine; PCP Nurse Practitioner
DX: S39.012A Strain of muscle, fascia and tendon of lower back, initial encounter (principal); W19.XXXA Unspecified fall, initial encounter; Y93.K1 Activity, walking an animal
CPT/HCPCS: 99283 ×2